=== PATIENT | female | born 1940 | race Caucasian/White ===

== ENCOUNTER → 2016-10-09 | Outpatient (CLI) | payer OTHER, MEDICARE | LOC: BHFA 13:15 | PROVIDERS: ATTEND Internal Medicine Cardiovascular Disease | DX: I25.10 Atherosclerotic heart disease of native coronary artery without angina pectoris (principal); I50.9 Heart failure, unspecified ==

== ENCOUNTER → 2017-04-08 | Outpatient (CLI) | payer OTHER, MEDICARE | LOC: BMCIMAGING 10:23 | PROVIDERS: ATTEND Internal Medicine | DX: Z13.820 Encounter for screening for osteoporosis (principal); M81.0 Age-related osteoporosis without current pathological fracture ==

== ENCOUNTER 2017-07-27 05:38 | Inpatient (IN) | payer OTHER, MEDICARE ==
--- NOTE | 2017-07-27 05:13 | GHP ---
[f rep st] HISTORY AND PHYSICAL Amended report CURRENT COMPLAINT: Left knee pain. HISTORY OF PRESENT ILLNESS: The patient is a 76-year-old female with a long history of left knee pain, worsening with use and with time. She has bone-on- bone arthritic changes by radiology report. She is undergoing a left total knee arthroplasty. ALLERGIES: Include sulfa. CURRENT MEDICATIONS: Include atorvastatin, carvedilol, ketorolac eye drops, levothyroxine, and prednisone eye drops. 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 PAST SURGICAL HISTORY: Prior surgeries include a cyst removal, lumpectomy, tonsillectomy, stent placement, and oncology surgery. SOCIAL HISTORY: She is a former smoker, and uses no alcohol. PHYSICAL EXAMINATION: HEENT: The patient's pupils are equal, round, and reactive to light. CHEST: Clear to auscultation. HEART: Regular rate and rhythm. ABDOMEN: Soft and nontender. EXTREMITIES: Left knee has a slight varus bow with medial osteophytic spurring. ASSESSMENT AND PLAN: Patient is status post left knee osteoarthritis. Plan is to take her to the operating room to undergo a left total knee arthroplasty. /[id number]/MODL Add acc#, 07/27/17, marcell STEVENS
[2017-07-27] MEDS ORDERED: ACETAMINOPHEN 500 MG TAB PO ONE (06:00)
[2017-07-27] MEDS ORDERED: ceFAZolin 2 GM/SWFI 2 GM/20 ML SYR IVP ONE (06:00)
[2017-07-27] MEDS ORDERED: ROPIVACAINE 0.2% 80 MG, EPINEPHrine 0.2 MG, KETOROLAC TROMETHAMINE 30 MG, morphINE 10 M... IU ONE (06:00)
[2017-07-27] MEDS ORDERED: TRANEXAMIC ACID 3,000 MG in NS 50 ML IRR ONE (06:00)
--- NOTE | 2017-07-27 06:59 | PDANEPAE ---
ANE History of Present Illness h/o OA presents for TKA ANE Past Medical History - Cardiovascular History Hx Hypertension: No Hx Arrhythmias: No Hx Chest Pain: No Hx Coronary Artery / Peripheral Vascular Disease: Yes Hx CHF / Valvular Disease: No Hx Palpitations: No Cardiovascular History Comment: STEMI 07-24-16 w/ coronary stent. On Plavix - Pulmonary History Hx COPD: No Hx Asthma/Reactive Airway Disease: No Hx Recent Upper Respiratory Infection: No Hx Oxygen in Use at Home: No Hx Sleep Apnea: No Pulmonary History Comment: asthma while living in [place]. in [place] since '. - Neurologic History Hx Cerebrovascular Accident: No Hx Seizures: No Hx Dementia: No - Endocrine History Hx Diabetes: Yes Hypothyroid: No Hyperthyroid: No Obesity: no Endocrine History Comment: well controlled w/diet. Hypthyroid. - Renal History Hx Renal Disorders: No - Liver History Hx Hepatic Disorders: No - Cancer History Hx Cancer: Yes Cancer History Comment: DCIS L breast - Congenital Disorder History Hx Congenital Disorders: No - GI History GERD: no Hx Gastrointestinal Disorders: Yes Gastrointestinal History Comment: occ Pepcid for heartburn w/Rx at night - Other Health History Other Health History: OA L knee. plan for L eye cataract:06-29-17. - Chronic Pain History Chronic Pain: Yes (L knee) - Surgical History Prior Surgeries: R eye cataract 05-20-17. lumpectomy L breast . tonsillectomy. cyst excision mouth . coronary stent 07-15 ANE Review of Systems Review of systems is: negative Review of Systems: - Exercise capacity METS (RN): 4 METS ANE Patient History - Allergies Allergies/Adverse Reactions: Sulfa (Sulfonamide Antibiotics) Allergy (Verified 06/28/17 17:43) Unknown - Home Medications Home medications: home medication list seen and reviewed Home Medications: Cholecalciferol Vit D3 [Vitamin D3 (*)] 2,000 unit PO DAILY 12/03/14 [Last Taken 1 Week Ago ~07/20/17] Aspirin [Aspirin 81mg (*)] 81 mg PO DAILY 06/28/17 [Last Taken 1 Week Ago ~07/20] Atorvastatin Calcium [Lipitor 80 mg] 80 mg PO DAILY 06/28/17 [Last Taken ] Calcium Carbonate [Oyster Shell Calcium 500 mg (*)] 500 mg PO DAILY 06/28/17 [ Last Taken 1 Week Ago ~07/20/17] Carvedilol [Coreg (*)] 1.5625 mg PO BIDMEAL 06/28/17 [Last Taken 07/27/17] Herbals/Supplements -Info Only 1 ea PO DAILY 06/28/17 [Last Taken 1 Week Ago ~] Ketorolac 0.5% [Acular 0.5% Opht Drops (*)] 1 drops LEFTEYE BID 06/28/17 [Last Taken 07/27/17] [place]-3 Fatty Acids [Fish Oil 1000 mg (*)] 1,000 mg PO DAILY 06/28/17 [Last Taken 1 Week Ago ~07/20/17] Polyvinyl Alcohol/Povidone/Pf [Refresh Classic Eye Drops] 1 each OP DAILY [Last Taken Unknown] prednisoLONE ACET 1% [Pred Forte 1% (*)] 1 drops LEFTEYE BID 06/28/17 [Last Taken 07/27/17] - Anes Hx Anes Hx: no prior problems - Smoking Hx Smoking Status: Former smoker ANE Labs/Vital Signs - Vital Signs Height: 156.21 cm Weight: 53.297 kg ANE Physical Exam - Airway Neck exam: FROM Mallampati Score: Class 2 Mouth exam: normal dental/mouth exam - Pulmonary Pulmonary: no respiratory distress - Cardiovascular Cardiovascular: regular rate and rhythym - ASA Status ASA Status: III ANE Anesthesia Plan Anesthesia Plan: spinal Regional Anesthesia: single shot NB, adductor canal FNB
--- NOTE | 2017-07-27 07:11 | PDHPUP ---
History & Physical Update H&P update statement: This history and physical update is based on an assessment of the patient which was completed after admission or registration (within 24 hours), but prior to the surgery/procedure. H&P update: H&P reviewed & patient examined, no change in patient's condition since H&P completed
[2017-07-27] MEDS ORDERED: LR 1,000 ML IV ONE (07:56)
[2017-07-27] MEDS ORDERED: CALCIUM CHLORIDE 1 GM/10 ML INJ ONE ×2 (08:32→13:12)
[2017-07-27] MEDS ORDERED: THROMBIN (BOVINE) 5,000 UNIT VIAL TP ONE ×2 (08:32→13:12)
[2017-07-27] MEDS ORDERED: BUPIVACAINE/EPI 0.5% 30 ML SDV ONE ×2 (08:32→13:02)
[2017-07-27] MEDS ORDERED: BACITRACIN 50,000 UNITS/10 ML SYR IRR ONE (08:33)
[2017-07-27] MEDS ORDERED: POLYMYXIN B SULFATE 500,000 UNIT/10 ML SYR IRR ONE (08:33)
[2017-07-27] MEDS ORDERED: ACETAMINOPHEN 500 MG TAB ONE (10:51)
[2017-07-27] MEDS ORDERED: ceFAZolin 2 GM/SWFI 20 ML SYR IVP ONE (10:52)
[2017-07-27] MEDS ORDERED: PROPOFOL/EMULSION 500 MG/50 ML BOTTLE IV ONE (11:26)
[2017-07-27] MEDS ORDERED: epHEDrine SULFATE 10 MG/ML SYR ONE ×3 (12:20)
[2017-07-27] MEDS ORDERED: ROPIVACAINE HCL 150 MG/30 ML INJ ONE (12:38)
[2017-07-27] MEDS ORDERED: LIDOCAINE 2% 100 MG/5 ML SYR ONE (12:38)
[2017-07-27] MEDS ORDERED: TRANEXAMIC ACID 3,000 MG/50 ML BAG IRR ONE (13:00)
[2017-07-27] MEDS ORDERED: LR 500 ML IV PRN (13:17)
[2017-07-27] MEDS ORDERED: OXYCODONE/APAP 5/325 TAB PO PRN (13:17)
[2017-07-27] MEDS ORDERED: NALOXONE HCL 0.4 MG/ML INJ IVP PRN (13:17)
[2017-07-27] MEDS ORDERED: HYDROmorphONE/DILAUDID 1 MG/ML INJ IVP PRN (13:17)
[2017-07-27] MEDS ORDERED: HYDROCODONE/APAP 5/325 TAB PO PRN (13:17)
[2017-07-27] MEDS ORDERED: ALBUTEROL 3 ML DEYVIAL IH PRN (13:17)
[2017-07-27] MEDS ORDERED: ONDANSETRON 4 MG/2 ML VIAL IVP PRN ×2 (13:17→13:51)
[2017-07-27] MEDS ORDERED: fentaNYL 100 MCG/2 ML INJ IVP PRN (13:17)
[2017-07-27] MEDS ORDERED: ACETAMINOPHEN 500 MG TAB PO PRN (13:17)
[2017-07-27] MEDS ORDERED: TEMAZEPAM 15 MG CAP PO PRN (13:51)
[2017-07-27] MEDS ORDERED: CYCLOBENZAPRINE 10 MG TAB PO PRN (13:51)
[2017-07-27] MEDS ORDERED: DIPHENOXYLATE/ATROPINE LOMOTIL 1 TAB PO PRN (13:51)
[2017-07-27] MEDS ORDERED: LACTULOSE 20 GM/30 ML UDCUP PO PRN (13:51)
[2017-07-27] MEDS ORDERED: TAPENTADOL HCL 50 MG TAB PO PRN (13:51)
[2017-07-27] MEDS ORDERED: ONDANSETRON DISINTEGRATING 4 MG TAB PO PRN (13:51)
[2017-07-27] MEDS ORDERED: METOCLOPRAMIDE 10 MG/2 ML VIAL IVP PRN (13:51)
[2017-07-27] MEDS ORDERED: POLYETHYLENE GLYCOL 3350 17 GM PKT PO PRN (13:51)
[2017-07-27] MEDS ORDERED: diphenhydrAMINE 25 MG CAP PO PRN (13:51)
[2017-07-27] MEDS ORDERED: MAGNESIUM HYDROXIDE 30 ML UDCUP PO PRN (13:51)
[2017-07-27] MEDS ORDERED: PROMETHAZINE HCL 25 MG/ML INJ IVP PRN (13:51)
[2017-07-27] MEDS ORDERED: BISACODYL 10 MG SUPP PR PRN (13:51)
[2017-07-27] MEDS ORDERED: PROMETHAZINE HCL 25 MG SUPPR PR PRN (13:51)
--- NOTE | 2017-07-27 13:51 | POSTOPPROG ---
Post Op Note Date of Operation: 07/27/17 Surgeon: Liv Wang Knowledge Manager: coltrain Anesthesia: Epidural, Other (Specify) Pre-op Diagnosis: l knee oa Procedure: l tkr Inf/Abcess present in the surg proc area at time of surgery?: No Depth: Deep Incisional (Fascial) EBL: 100-500
[2017-07-27] MEDS ORDERED: LR 1,000 ML IV SCH (14:00)
--- NOTE | 2017-07-27 15:05 | GOP ---
[f rep st] OPERATIVE REPORT DATE OF OPERATION: 07/27/2017 SURGEON: Liv Wang MD ENGINE CLEANER: John Roche, CSFA, LSA, whose presence was medically necessary. ANESTHESIA: By epidural nerve block plus adductor nerve block per surgeon's request. PREOPERATIVE DIAGNOSIS: Left knee osteoarthritis. POSTOPERATIVE DIAGNOSIS: Left knee osteoarthritis. PROCEDURE PERFORMED: Left total knee arthroplasty. FINDINGS: INDICATIONS: This is a 76-year-old female with a several year history of left knee pain worsening wi th use and with time, along with an increasing varus deformity with instability with time. X-ray exa m reveals severe osteoarthritic changes within the knee. She wishes to have surgery in order to reso lve the problem. DESCRIPTION OF PROCEDURE: The patient brought to the operating room after the left side had been damaso ntified as correct side by the patient, nurse and physician. Once in the operating room, she was giv en an adductor canal block. She was also given an epidural nerve block and then placed supine on the operative table. A tourniquet was placed on the left lower extremity. Now, with the left lower ext remity then sterilely prepped and draped in usual fashion using GSI solution, the limb was exsanguina susan, tourniquet inflated to 250 mmHg. A linear incision was made on the anterior portion of the knee 1 handbreadth above and below the patella with sharp dissection carried down through the skin and lacey bcutaneous layers with bleeding controlled using electrocautery. A medial parapatellar approach was performed through the extensor mechanism with the patella brought to the side but not everted. She w as noted to have severe osteoarthritic changes to the medial compartment and lesser changes, but down to bone, into the lateral and patellofemoral compartments. She had abundant amount of osteophytic s purring. The ACL as well as medial lateral meniscus and the Hoffa fat pad were removed in order to h ave clear access to the rest of the knee. The first femoral jig was put into place with drill holes made for the jig and drill holes placed within the distal portion of the femur. The first jig was re moved and the #2 jig was put into place with the end cutting block, then pinned into place jeevan colmenares. The jig portion was removed and an oscillating saw was used to remove the distal end of the fem ur. Once the distal end of the femur was removed, the prior holes that had been made in the distal e nd of the femur were then filled with pins again and the 3 in 1 cutting block was put into place, set in 0 degrees of extra external rotation. Lug holes were drilled for the femoral component and the a nterior, posterior and anterior chamfer cuts were made. This too was then removed and the posterior cutting jig was then put into place and the posterior chamfer cuts were made. Trial femoral componen t was then put into place, noted to fit securely. The knee was able to achieve full extension sugges ting adequate amount of bone had been removed. The trial was then removed. The knee was brought to maximum flexion, tibia subluxed anteriorly and a tibial guide was then put into place. Residual cart ilage was removed from the lateral compartment in order to ensure that the feet of the tibial jig fit appropriately. Once set into place, it was noted to have good alignment, varus valgus and posterior slope. It was then pinned into place. An oscillating saw was used to remove the proximal portion o f the tibia. Once the this portion of the bone had been removed, femoral and tibial trials were then put into place. The knee was able to achieve full extension suggesting adequate amount of bone rese ction. The knee was brought through range of motion, in order to secure the rotation of the tibial c omponent. This was marked while the leg was in extension. The trials were then removed, the knee br ought to full flexion with the tibia subluxed anteriorly. The tibial template was then put into plac e, pinned into place. Medullary drill and a keel punch were passed through the trial. Once complete d, the trial was removed. The knee was brought into full extension. Patella was then everted, held in place with 2 towel clamps, was measured to be 20 mm in thickness. Oscillating saw was used to rem ove the posterior portion of the patella, leaving 15 mm of bone. Multiple trials were tried on the c ut surface of the bone, noted that a 29 mm patellar button seemed to fit best and lug holes were dril led for that patellar button. All cut surfaces of bone were then thoroughly irrigated with antibioti c solution while cement was being mixed. Prior to the cement being placed in the knee, a joint cockt ail was injected into the posterior capsule along the periosteum of the femur and tibia and even into the extensor mechanism. Once the cement had become doughy, it was placed on the proximal end of the tibia with a custom made [employer]form[employer] tibial component put into place, with excess cement removed usin g Dyess elevators. Cement was then placed on the posterior skids of the femoral component and cement placed on the distal and anterior portions of the cut surface of the femur. A custom-made cruciate r etaining left femoral component from [employer] was put into place, with excess cement removed using Dyess elevator, trial liners were placed in the tibial tray and the knee brought to full extension un faustina pressurized cement. Cement was then placed on the cut surface of the patella and a 29 mm patellar button was clamped into place and excess cement removed using Dyess elevator. Once the cement had h ardened, the clamps were removed as well as the trials, any excess cement that was found was removed using combination of osteotome and rongeur. Multiple trials were placed in the tibial tray, noted th at a 6 mm medial and a size B lateral insert seemed to fit best. Therefore, the trials were removed. The tibial tray was thoroughly irrigated with antibiotic solution and a 6 mm medial and a size B la teral polyethylene insert were placed in the tibial tray. Once locked into place, the knee was broug ht to 30 degrees of flexion. Tourniquet was deflated at 50 minutes. Bleeding was controlled using e lectrocautery. Then, 0 Vicryl suture was used in a [id number]-[id number] type stitch to close the extensor mechanism with plasma gel placed intra-articularly. Then, 0 Vicryl and 2-0 Vicryl suture were used t o close subcutaneous layers with plasma gel placed external to the extensor mechanism and then a 3-0 V-Loc suture was used in a running subcuticular stitch to close the skin. The wound was dressed with Steri-Strips, Xeroform, 4 x 4, Kerlix. The leg was completely undraped in the operating room, tourn iquet removed from the thigh and an Michael wrap placed around the knee. The patient was then woken up, transferred onto a stretcher, and sent to recovery room in good condition. TOURNIQUET TIME: 50 minutes. /[id number]/MODL
--- NOTE | 2017-07-27 15:35 | POSTANESTH ---
Post Anesthetic Evaluation Cardiovascular Status: Normal, Stable Respiratory Status: Normal, Stable Level of Consciousness/Mental Status: Can Participate in Eval Pain Control: Adequate, Prn Tx Ordered Nausea/Vomiting Control: Adequate, Prn Tx Ordered Complications Possibly Related to Anesthesia: None Noted
[2017-07-27] MEDS: KETOROLAC 30 MG/1 ML SDV IVP SCH (17:51)
[2017-07-27] MEDS: ACETAMINOPHEN 325 MG TAB PO SCH (17:55)
[2017-07-27] MEDS: traMADol 50 MG TAB PO SCH (17:56)
[2017-07-27] MEDS: CARVEDILOL 3.125 MG TAB PO SCH (17:56)
[2017-07-27] MEDS: FAMOTIDINE 20 MG TAB PO SCH ×2 (18:00→18:01)
[2017-07-27] MEDS: ceFAZolin 2 GM/DEXTROSE 100 ML IV SCH (19:55)
[2017-07-27] MEDS: oxyCODONE IR 5 MG TAB PO PRN (19:59)
[2017-07-27] MEDS: SENNOSIDES/DOCUSATE SODIUM TAB PO SCH (20:00)
[2017-07-28] MEDS: ACETAMINOPHEN 325 MG TAB PO SCH ×5 (00:11→23:59)
[2017-07-28] MEDS: traMADol 50 MG TAB PO SCH ×5 (00:11→22:41)
[2017-07-28] MEDS: KETOROLAC 30 MG/1 ML SDV IVP SCH ×5 (00:11→23:59)
[2017-07-28] MEDS: ceFAZolin 2 GM/DEXTROSE 100 ML IV SCH (04:15)
[2017-07-28] MEDS: LEVOTHYROXINE 75 MCG TAB PO SCH (05:33)
[2017-07-28 05:51] LABS: HEMATOCRIT 33.9 % (38.0-47.0); HEMOGLOBIN 11.4 g/dL (12.6-16.3)
[2017-07-28] MEDS: FAMOTIDINE 20 MG TAB PO SCH ×2 (08:11→21:58)
[2017-07-28] MEDS: SENNOSIDES/DOCUSATE SODIUM TAB PO SCH ×2 (08:14→21:58)
[2017-07-28] MEDS: RIVAROXABAN 10 MG TAB PO SCH (08:14)
[2017-07-28] MEDS: CARVEDILOL 3.125 MG TAB PO SCH ×2 (08:21→18:15)
[2017-07-28] MEDS ORDERED: ATORVASTATIN CALCIUM 40 MG TAB PO SCH (09:00)
--- NOTE | 2017-07-28 12:37 | SOAPPROG ---
SOAP Progress Note Assessment/Plan: Assessment: Plan: - stay tonight, d/c home tomorrow 07/28/17 12:36 Subjective: Had some nausea this am, better now, pain is minimal Objective: Vital Signs Temp Pulse Resp BP Pulse Ox 36.3 C 51 L 16 107/59 L 93 07/28/17 11:45 07/28/17 11:45 07/28/17 11:45 07/28/17 11:45 07/28/17 11:45 Laboratory Results 07/28/17 05:13 07/27/17 07/28/17 07/29/17 05:59 05:59 05:59 Intake Total 2585 Output Total 1200 Balance 1385 Dressing cdi, calf nt, neg homman's, nvi - Time Spent With Patient Time Spent With Patient: 15 - Pending Discharge Pending Discharge Within 24 Hours: No Pending Discharge Within 48 Hours: Yes Pending Discharge Date: 07/30/17 Pending Discharge Time: 11:00 ICD10 Worksheet Patient Problems: Problems Problem Status Onset Acute [place], anterior wall Acute Chronic Disease Mgm/Transitional Care Acute
--- NOTE | 2017-07-28 14:30 | ASMTCMCOM ---
CM Note CM Note Notes: CJR pre-call pt agreeable to [facility] per surgeon's recommendation. PT rec HH vs. outpatient, pt agreeable still to [facility] PT. Referral sent in Allscripts. Pt likely d/c tomorrow. CM to follow. Date Signed: 07/28/2017 02:29 PM Electronically Signed By:EULALIA Lopez
[2017-07-28] MEDS ORDERED: ATORVASTATIN CALCIUM 20 MG TAB PO SCH (18:00)
[2017-07-29 05:13] LABS: HEMATOCRIT 35.1 % (38.0-47.0); HEMOGLOBIN 11.9 g/dL (12.6-16.3)
[2017-07-29] MEDS: LEVOTHYROXINE 75 MCG TAB PO SCH (05:45)
[2017-07-29] MEDS: traMADol 50 MG TAB PO SCH ×2 (05:45→13:18)
[2017-07-29] MEDS: ACETAMINOPHEN 325 MG TAB PO SCH ×2 (05:46→13:18)
[2017-07-29] MEDS: KETOROLAC 30 MG/1 ML SDV IVP SCH ×2 (05:46→13:18)
[2017-07-29 07:52] VITALS: BP 102/52; PULSE 66; RESP 16; TEMP 97.8; O2SAT 94
[2017-07-29] MEDS: SENNOSIDES/DOCUSATE SODIUM TAB PO SCH (09:48)
[2017-07-29] MEDS: RIVAROXABAN 10 MG TAB PO SCH (09:48)
[2017-07-29] MEDS: CARVEDILOL 3.125 MG TAB PO SCH (09:50)
[2017-07-29] MEDS: FAMOTIDINE 20 MG TAB PO SCH ×2 (09:51→12:15)
--- NOTE | 2017-07-29 12:21 | SOAPPROG ---
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 07/28/17 12:36 07/29/17 12:20 Subjective: Doing well Objective: Vital Signs Temp Pulse Resp BP Pulse Ox 36.6 C 66 16 102/52 L 94 07/29/17 07:49 07/29/17 07:49 07/29/17 07:49 07/29/17 07:49 07/29/17 07:49 Laboratory Results 07/29/17 05:04 07/28/17 07/29/17 07/30/17 05:59 05:59 05:59 Intake Total 2585 2100 240 Output Total 1200 1825 500 Balance 1385 275 -260 Wound CDI, calf NT, weakness with dorsiflexion on surgical side - Time Spent With Patient Time Spent With Patient: 15 - Pending Discharge Pending Discharge Within 24 Hours: Yes Pending Discharge Within 48 Hours: No Pending Discharge Date: 07/30/17 Pending Discharge Time: 11:00 ICD10 Worksheet Patient Problems: Problems Problem Status Onset Acute PA, anterior wall Acute Chronic Disease Mgm/Transitional Care Acute
--- NOTE | 2017-07-29 12:24 | PDIAF ---
- Diagnosis Code Status: Full Code - Medication Management Discharge Medications: Medications to Continue on Transfer Cholecalciferol Vit D3 [Vitamin D3 (*)] 2,000 unit PO DAILY 12/03/14 [Last Taken 1 Week Ago ~07/20/17] Clopidogrel Bisulfate [Plavix (*)] 75 mg PO DAILY #30 tab 07/30/16 [Last Taken 07/19/17] Levothyroxine [Synthroid 75 mcg (*)] 75 mcg PO DAILY06 #30 tab 07/30/16 [Last Taken 07/27/17] Aspirin [Aspirin 81mg (*)] 81 mg PO DAILY 06/28/17 [Last Taken 1 Week Ago ~07/20] Calcium Carbonate [Oyster Shell Calcium 500 mg (*)] 500 mg PO DAILY 06/28/17 [ Last Taken 1 Week Ago ~07/20/17] Carvedilol [Coreg (*)] 1.5625 mg PO BIDMEAL 06/28/17 [Last Taken 07/27/17] Herbals/Supplements -Info Only 1 ea PO DAILY 06/28/17 [Last Taken 1 Week Ago ~] Ketorolac 0.5% [Acular 0.5% Opht Drops (*)] 1 drops LEFTEYE BID 06/28/17 [Last Taken 07/27/17] [place]-3 Fatty Acids [Fish Oil 1000 mg (*)] 1,000 mg PO DAILY 06/28/17 [Last Taken 1 Week Ago ~07/20/17] Polyvinyl Alcohol/Povidone/Pf [Refresh Classic Eye Drops] 1 each OP DAILY [Last Taken Unknown] prednisoLONE ACET 1% [Pred Forte 1% (*)] 1 drops LEFTEYE BID 06/28/17 [Last Taken 07/27/17] Atorvastatin Calcium [Lipitor 20 mg (*)] 20 mg PO DAILY18 07/28/17 [Last Taken Unknown] Acetaminophen [Tylenol 325mg (*)] 650 mg PO Q6HRS tab 07/29/17 [Last Taken Unknown] Ondansetron Odt [Zofran Odt 4 mg (*)] 4 mg PO Q4HRS PRN tab 07/29/17 [Last Taken Unknown] Rivaroxaban [Xarelto 10mg (*)] 10 mg PO DAILY tab 07/29/17 [Last Taken Unknown] oxyCODONE IR [Oxycodone Ir (*)] 5 - 10 mg PO Q3HRS PRN tab 07/29/17 [Last Taken Unknown] traMADol [Ultram 50 mg (*)] 50 mg PO Q6HRS tab 07/29/17 [Last Taken Unknown] Discharge Medications: Refer to the Discharge Home Medication list for PRN reason. - Orders Services needed: Physical Therapy Diet Recommendation: no restrictions on diet Diet Texture: Regular Texture Diet Cooper: Not applicable Wound Care Instructions: keep dressin on, will remove in office Activity/Weight Bearing Restrictions: wbat - Follow Up Care Current Providers and Referrals: Martha Moss MD [Primary Care Provider] - Liv Wang MD [Medical Doctor] -
--- NOTE | 2017-07-29 13:36 | ASMTCMCOM ---
CM Note CM Note Notes: Pt medically stable for d/c with [facility] PT. Orders sent in Allscripts. Date Signed: 07/29/2017 01:35 PM Electronically Signed By:EULALIA Lopez
[2017-07-29] MEDS: oxyCODONE IR 5 MG TAB PO PRN (13:49)
--- NOTE | 2017-07-29 15:00 | ASDISCHSUM ---
Discharge Information Plan Status:Home with Home Health Medically Cleared to Leave: Discharge Date:07/29/2017 02:34 PM CM D/C Disposition:Home Health Service ADT D/C Disposition:Home, Routine, Self-Care Projected Discharge Date:07/29/2017 11:00 AM Transportation at D/C: Discharge Delay Reason: Follow-Up Date:07/29/2017 11:00 AM Discharge Slot: Final Diagnosis: Placement Information Referral Type:*Home Health Care Services Referral ID:[id number] Provider Name:[facility] [place] Address 1:[address] [address] Phone Number: Address 2: Fax Number: City:[place] Selection Factors: State:[place] Patient Contact Information Contact Name:BECKY Relationship:Daughter Address: Work Phone: City: [facility] Phone: [facility] Code: Email: Financial Information Financial Class: Primary Plan Desc:MEDICARE INPATIENT Primary Plan Number:[id number] Secondary Plan Desc:[employer]/MDR SUPPLEMENT Secondary Plan Number:[id number] Assessment Information [facility] CM Progress Note CM Note CM Note Notes: CJR pre-call pt agreeable to [facility] per surgeon's recommendation. PT rec [facility] vs. outpatient, pt agreeable still to [facility] PT. Referral sent in Allscripts. Pt likely d/c tomorrow. CM to follow. Date Signed: 07/28/2017 02:29 PM Electronically Signed By:EULALIA Lopez [facility] CM Progress Note CM Note CM Note Notes: Pt medically stable for d/c with [facility] PT. Orders sent in Allscripts. Date Signed: 07/29/2017 01:35 PM Electronically Signed By:EULALIA Lopez Intervention Information
== END 2017-07-29 14:34 | disposition home health service (06) | DRG 470 ==
LOC: F3N 05:38
PROVIDERS: ADMIT Orthopaedic Surgery; ATTEND Orthopaedic Surgery
PROC: 0SRD0J9 Replacement of Left Knee Joint with Synthetic Substitute, Cemented, Open Approach (ICD-10-PCS; principal; 2017-07-27 07:15)
DX: M17.12 Unilateral primary osteoarthritis, left knee (principal); I25.2 Old myocardial infarction; E11.9 Type 2 diabetes mellitus without complications; E03.9 Hypothyroidism, unspecified; Z79.02 Long term (current) use of antithrombotics/antiplatelets; Z95.5 Presence of coronary angioplasty implant and graft
CPT/HCPCS: 97161-GP; 97165-GO; 97535-GO; C1713; G8978-GP-CI; G8979-GP-CI; G8987-GO-CJ; G8988-GO-CI; J0171; J0690; J1885; J2001; J2405; J2704; J2795

== ENCOUNTER 2017-11-02 22:08 | Emergency (ER) | payer OTHER, MEDICARE ==
--- NOTE | 2017-11-02 22:33 | EDPHY ---
H & P Stated Complaint: mechanical fall, L wrist/shoulder pain Time Seen by Provider: 11/02/17 22:32 HPI/ROS: HPI CHIEF COMPLAINT: Mechanical trip and fall, left shoulder, left wrist pain HISTORY OF PRESENT ILLNESS: Patient very pleasant 76-year-old female she took a mechanical trip and fall while getting out of her car. She slipped and fell. Outstretched left hand. She landed on her left hand and left shoulder. She complains of pain in the left wrist radial aspect 3/10. Also 1/10 left shoulder pain. She has full range of motion of the left wrist, left shoulder. Denies head strike. She is not on any anticoagulation. She denies pain anywhere else. Denies head strike or neck pain denies chest pain or shortness of breath. Denies syncope. Past Medical History: Cardiac disease Past Surgical History: Knee replacement Social History: Denies drugs alcohol tobacco products. Family History: Noncontributory ROS REVIEW OF SYSTEMS: A comprehensive 10 point review of systems is otherwise negative aside from elements mentioned in the history of present illness. Exam Constitutional appears well nontoxic no acute distress triage nursing summary reviewed, vital signs reviewed, awake/alert. Eyes normal conjunctivae and sclera, EOMI, PERRLA. HENT normal inspection, atraumatic, moist mucus membranes, no epistaxis, neck supple/ no meningismus, no raccoon eyes. Respiratory clear to auscultation bilaterally, normal breath sounds, no respiratory distress, no wheezing. Cardiovascular rate normal, regular rhythm, no murmur, no edema, distal pulses normal. Gastrointestinal soft, non-tender, no rebound, no guarding, normal bowel sounds, no distension, no pulsatile mass. Genitourinary no CVA tenderness. Musculoskeletal left upper extremity: X-ray nerve intact, full range of motion of the left shoulder, full range motion of left wrist, good radial pulse. No signs of compartment syndrome, good cap refill, good solar sales strength. Tender palpation of the distal radius. No obvious signs of trauma. Very mild swelling. no midline vertebral tenderness, full range of motion, no calf swelling, no tenderness of extremities, no meningismus, good pulses, neurovascularly intact. Right ankle: Tender palpation over the right lateral malleolus and swelling however patient has declined x-ray. Most likely ankle sprain. Skin pink, warm, & dry, no rash, skin atraumatic. Neurologic awake, alert and oriented x 3, AAOx3, moves all 4 extremities equally, motor intact, sensory intact, CN II-XII intact, normal cerebellar, normal vision, normal speech. Psychiatric normal mood/affect. Heme/Lymph/Immune no lymphadenopathy. Differential Diagnosis: Includes but is not limited to in a particular order left wrist sprain, left wrist fracture, soft tissue injury, bony contusion, shoulder contusion Medical Decision Making: Plan for this patient she declined pain medicine here in emergency room, x-ray left shoulder, x-ray left wrist. Will most likely splint the left wrist that she has some discomfort there. Re-evaluation: X-ray of the left shoulder is negative for acute fracture dislocation or dislocation. X-ray of the left wrist: This shows a impacted, comminuted, left distal radius wrist fracture. This patient be splinted in a sugar-tong splint. She has no scaphoid tenderness on exam. She will need to follow up with Orthopedics. I reviewed with the patient that her x-ray left shoulder is negative for fracture or dislocation. I reviewed that her wrist is fractured is a closed injury. She be placed in a splint. She will need to follow up with Orthopedics. She understands call their make a follow-up appointment. Additionally will give her prescription for [place] for pain control. Declined pain medicine here in the emergency room she is neurovascular intact no signs of compartment syndrome. Additionally as for her right ankle she declined any imaging. She states feels fine she has some swelling over the right lateral malleolus. Some ecchymosis. Source: Patient - Personal History Current Tetanus/Diphtheria Vaccine: Yes - Medical/Surgical History Hx Asthma: Yes Hx Chronic Respiratory Disease: No Hx Diabetes: Yes Hx Cardiac Disease: Yes Hx Renal Disease: No Hx Cirrhosis: No Hx Alcoholism: No Hx HIV/AIDS: No Hx Splenectomy or Spleen Trauma: No Other PMH: cheek cyst removal, tonsillectomy, left lumpectomy,asthma, diet controlled DM type 2, rheumatic fever age 5,[place] 07/19/2016,asthma - Social History Smoking Status: Former smoker Constitutional: Initial Vital Signs Temperature (C) 36.3 C 11/02/17 22:10 Heart Rate 89 11/02/17 22:10 Respiratory Rate 18 11/02/17 22:10 Blood Pressure 136/71 H 11/02/17 22:10 O2 Sat (%) 93 11/02/17 22:10 O2 Delivery Mode Room Air Allergies/Adverse Reactions: Sulfa (Sulfonamide Antibiotics) Allergy (Verified 11/02/17 22:10) Unknown Home Medications: Medication Instructions Recorded Cholecalciferol Vit D3 [Vitamin D3 2,000 unit PO DAILY 12/03/14 (*)] Clopidogrel Bisulfate [Plavix (*)] 75 mg PO DAILY #30 tab 07/30/16 Levothyroxine [Synthroid 75 mcg 75 mcg PO DAILY06 #30 tab 07/30/16 (*)] Aspirin [Aspirin 81mg (*)] 81 mg PO DAILY 06/28/17 Calcium Carbonate [Oyster Shell 500 mg PO DAILY 06/28/17 Calcium 500 mg (*)] Carvedilol [Coreg (*)] 1.5625 mg PO BIDMEAL 06/28/17 Herbals/Supplements -Info Only 1 ea PO DAILY 06/28/17 Ketorolac 0.5% [Acular 0.5% Opht 1 drops LEFTEYE BID 06/28/17 Drops (*)] [place]-3 Fatty Acids [Fish Oil 1000 1,000 mg PO DAILY 06/28/17 mg (*)] Polyvinyl Alcohol/Povidone/Pf 1 each OP DAILY 06/28/17 [Refresh Classic Eye Drops] prednisoLONE ACET 1% [Pred Forte 1 drops LEFTEYE BID 06/28/17 1% (*)] Atorvastatin Calcium [Lipitor 20 20 mg PO DAILY18 07/28/17 mg (*)] Acetaminophen [Tylenol 325mg (*)] 650 mg PO Q6HRS tab 07/29/17 Ondansetron Odt [Zofran Odt 4 mg 4 mg PO Q4HRS PRN tab 07/29/17 (*)] Rivaroxaban [Xarelto 10mg (*)] 10 mg PO DAILY tab 07/29/17 oxyCODONE IR [Oxycodone Ir (*)] 5 - 10 mg PO Q3HRS PRN tab 07/29/17 traMADol [Ultram 50 mg (*)] 50 mg PO Q6HRS tab 07/29/17 Hydrocodone/APAP 5/325 [[place] 1 - 2 tab PO Q4H PRN #10 tab 11/02/17 5/325] Medical Decision Making - Diagnostics Imaging Results: Imaging Impressions Wrist X-Ray 11/02/17 22:22 Impression: Mildly comminuted, displaced and impacted intra-articular fracture of the distal left radius. Shoulder X-Ray 11/02/17 22:36 Impression: Negative for fracture. - Data Points Medications Given: Discontinued Medications Hydrocodone Bitart/Acetaminophen ([place] 5/325mg Prepack#6) 1 btl TAKEHOME EDNOW ONE Stop: 11/02/17 23:37 Last Admin: 11/02/17 23:53 Dose: 1 btl Departure - Departure Disposition: Home, Routine, Self-Care Clinical Impression: Wrist fracture Qualifiers: Encounter type: initial encounter Fracture type: closed Laterality: left Qualified Code(s): S62.102A - Fracture of unspecified carpal bone, left wrist, initial encounter for closed fracture Ankle sprain Qualifiers: Encounter type: initial encounter Involved ligament of ankle: unspecified ligament Laterality: right Qualified Code(s): S93.401A - Sprain of unspecified ligament of right ankle, initial encounter Condition: Good Instructions: Hydrocodone/Acetaminophen (By mouth), Ankle Sprain (ED), Wrist Injury (ED), Wrist Fracture in Adults (ED) Additional Instructions: 1. Ice your wrist. 2. Stay in your splint for comfort. 3. Follow up with Orthopedics. Please call there this week. Referrals: Martha Moss MD [Primary Care Provider] - As per Instructions Christoph Dalton MD [Medical Doctor] - As per Instructions Prescriptions: Hydrocodone/APAP 5/325 [[place] 5/325] 1 - 2 tab PO Q4H PRN #10 tab PRN Reason: Pain, Moderate
[2017-11-02] MEDS ORDERED: HYDROCOD/APAP 5/325 PREPACK#6 BTL TAKEHOME ONE (23:36)
[2017-11-03 00:10] VITALS: BP 129/82; PULSE 77; RESP 16; TEMP 97.7; O2SAT 94
== END 2017-11-03 00:09 | disposition home or self-care (01) ==
DX: S52.572A Other intraarticular fracture of lower end of left radius, initial encounter for closed fracture (principal); S93.401A Sprain of unspecified ligament of right ankle, initial encounter; J45.909 Unspecified asthma, uncomplicated; E11.9 Type 2 diabetes mellitus without complications; Z87.891 Personal history of nicotine dependence; Z79.82 Long term (current) use of aspirin; Z79.01 Long term (current) use of anticoagulants; W01.0XXA Fall on same level from slipping, tripping and stumbling without subsequent striking against object, initial encounter
CPT/HCPCS: 73030; 73110; 99283; A4565

== ENCOUNTER → 2017-11-17 | Outpatient (CLI) | payer OTHER, MEDICARE | LOC: BHFA 13:15 | PROVIDERS: ATTEND Internal Medicine Cardiovascular Disease | DX: I25.10 Atherosclerotic heart disease of native coronary artery without angina pectoris (principal) ==

== ENCOUNTER 2018-07-13 14:35 | Inpatient (IN) | payer OTHER, MEDICARE ==
[2018-07-13] MEDS ORDERED: NS 1,000 ML IV ONE (14:47)
[2018-07-13] MEDS ORDERED: fentaNYL 100 MCG/2 ML INJ IVP ONE (14:47)
--- NOTE | 2018-07-13 14:52 | EDPHY ---
H & P Stated Complaint: fall from standing on to right side Time Seen by Provider: 07/13/18 14:48 HPI/ROS: HPI CHIEF COMPLAINT: The right hip pain, right upper leg pain. HISTORY OF PRESENT ILLNESS: This is a very pleasant 77-year-old female, presents emergency room with right hip pain. The patient was playing ping-pong ball, she went to go reach for ball slipped and fell landing on her right hip. She now complains of right lateral hip pain. She is unable to ambulate. Unable to bear weight. Unable to move the right leg. She denies any chest pain or shortness of breath. Denies any other areas of injury. Past Medical History: Significant medical history for cognitive impairment, diabetes, thyroid disease, hypotension Past Surgical History: No recent surgery Social History: Denies drugs alcohol tobacco. Family History: Noncontributory ROS REVIEW OF SYSTEMS: 10 Systems were reviewed and negative with the exception of the elements mentioned in the history of present illness. Exam Constitutional triage nursing summary reviewed, vital signs reviewed, awake/ alert. Eyes normal conjunctivae and sclera, EOMI, PERRLA. HENT normal inspection, atraumatic, moist mucus membranes, no epistaxis, neck supple/ no meningismus, no raccoon eyes. Respiratory clear to auscultation bilaterally, normal breath sounds, no respiratory distress, no wheezing. Cardiovascular rate normal, regular rhythm, no murmur, no edema, distal pulses normal. Gastrointestinal soft, non-tender, no rebound, no guarding, normal bowel sounds, no distension, no pulsatile mass. Genitourinary no CVA tenderness. Musculoskeletal right leg is neurovascular intact with good distal pulse, good cap refill. Limited range of motion due to pain of the proximal femur, right lateral hip. Patient unable to move her leg due to pain. no midline vertebral tenderness, full range of motion, no calf swelling, no tenderness of extremities, no meningismus, good pulses, neurovascularly intact. Skin pink, warm, & dry, no rash, skin atraumatic. Neurologic awake, alert and oriented x 3, AAOx3, moves all 4 extremities equally, motor intact, sensory intact, CN II-XII intact, normal cerebellar, normal vision, normal speech. Psychiatric normal mood/affect. Heme/Lymph/Immune no lymphadenopathy. Differential Diagnosis: Includes but is not limited to in a particular order hip contusion, pelvis fracture, hip fracture, femur fracture Medical Decision Making: Plan for this patient x-ray right pelvis, right hip, basic blood work, IV fentanyl for pain control re-evaluate. Re-evaluation: CT scan reviewed this shows a right-sided intratrochanteric hip fracture. X-rays were additionally reviewed. Hard to appreciate on the x-ray. Given the patient's hip fracture, patient need to be admitted to the hospitalist service. I will also consult Orthopedics. Spoke with the hospitalist service Dr. Snyder agrees to admit. Of note the patient's orthopedic surgeon is Dr. Wang, we did try to contact him but unable to contact him in the emergency room. Source: Patient, EMS - Personal History Current Tetanus Diphtheria and Acellular Pertussis (TDAP): Yes - Medical/Surgical History Hx Asthma: Yes Hx Chronic Respiratory Disease: No Hx Diabetes: Yes Hx Cardiac Disease: Yes Hx Renal Disease: No Hx Cirrhosis: No Hx Alcoholism: No Hx HIV/AIDS: No Hx Splenectomy or Spleen Trauma: No Other PMH: cheek cyst removal, tonsillectomy, left lumpectomy,asthma, diet controlled DM type 2, rheumatic fever age 5,[place] 07/19/2016,asthma - Social History Smoking Status: Former smoker Constitutional: Initial Vital Signs Temperature (C) 36 C 07/13/18 14:40 Heart Rate 75 07/13/18 14:40 Respiratory Rate 16 07/13/18 14:40 Blood Pressure 162/77 H 07/13/18 14:40 O2 Sat (%) 96 07/13/18 14:40 O2 Delivery Mode Room Air Allergies/Adverse Reactions: Sulfa (Sulfonamide Antibiotics) Allergy (Verified 07/13/18 16:27) Unknown Home Medications: Medication Instructions Recorded Cholecalciferol Vit D3 [Vitamin D3 2,000 unit PO DAILY 12/03/14 (*)] Levothyroxine [Synthroid 75 mcg 75 mcg PO DAILY06 #30 tab 07/30/16 (*)] Aspirin [Aspirin 81mg (*)] 81 mg PO HS 06/28/17 Carvedilol [Coreg (*)] 1.5625 mg PO BIDMEAL 06/28/17 Herbals/Supplements -Info Only 1 ea PO DAILY 06/28/17 [place]-3 Fatty Acids [Fish Oil 1000 1,000 mg PO DAILY 06/28/17 mg (*)] Atorvastatin Calcium [Lipitor 20 20 mg PO HS 07/28/17 mg (*)] Medical Decision Making - Diagnostics Imaging Results: Imaging Impressions Hip X-Ray 07/13/18 14:47 Impression: Acute oblique right proximal femur intertrochanteric fracture. Findings and recommendations discussed with Emergency Department physician, Davy Wood MD, at 1650 hour, 07/13/2018. Final report concurs with initial preliminary interpretation. Pelvis CT 07/13/18 15:37 Impression: 1. Acute oblique intertrochanteric right proximal femur fracture with slight displacement. 2. Constipation, diverticulosis sigmoid colon without diverticulitis. Findings and recommendations discussed with Emergency Department physician, Davy Wood MD, at 1653 hour, 07/13/2018. Final report concurs with initial preliminary interpretation. - Data Points Laboratory Results: Laboratory Results 07/13/18 15:50 07/13/18 15:50 07/13/18 07/13/18 07/13/18 15:50 15:50 15:50 WBC 8.61 10^3/uL 10^3/uL (3.80-9.50) RBC 4.41 10^6/uL 10^6/uL (4.18-5.33) Hgb 13.7 g/dL g/dL (12.6-16.3) Hct 40.9 % % (38.0-47.0) MCV 92.7 fL fL (81.5-99.8) MCH 31.1 pg pg (27.9-34.1) MCHC 33.5 g/dL g/dL (32.4-36.7) RDW 12.5 % % (11.5-15.2) Plt Count 240 10^3/uL 10^3/uL (150-400) MPV 9.5 fL fL (8.7-11.7) Neut % (Auto) 62.0 % % (39.3-74.2) Lymph % (Auto) 25.6 % % (15.0-45.0) [place] % (Auto) 6.7 % % (4.5-13.0) Eos % (Auto) 4.6 % % (0.6-7.6) Baso % (Auto) 0.8 % % (0.3-1.7) Nucleat RBC Rel Count 0.0 % % (0.0-0.2) Absolute Neuts (auto) 5.33 10^3/uL 10^3/uL (1.70-6.50) Absolute Lymphs (auto) 2.20 10^3/uL 10^3/uL (1.00-3.00) Absolute Monos (auto) 0.58 10^3/uL 10^3/uL (0.30-0.80) Absolute Eos (auto) 0.40 10^3/uL 10^3/uL (0.03-0.40) Absolute Basos (auto) 0.07 10^3/uL 10^3/uL (0.02-0.10) Absolute Nucleated RBC 0.00 10^3/uL 10^3/uL (0-0.01) Immature Gran % 0.3 % % (0.0-1.1) Immature Gran # 0.03 10^3/uL 10^3/uL (0.00-0.10) PT 13.3 SEC SEC (12.0-15.0) INR 0.99 (0.83-1.16) APTT 29.2 SEC SEC (23.0-38.0) Sodium 138 mEq/L mEq/L (135-145) Potassium 4.2 mEq/L mEq/L (3.3-5.0) Chloride 107 mEq/L mEq/L (97-110) Carbon Dioxide 23 mEq/l mEq/l (22-31) Anion Gap 8 mEq/L mEq/L (6-14) BUN 18 mg/dL mg/dL (7-23) Creatinine 0.5 mg/dL L mg/dL (0.6-1.0) Estimated GFR > 60 Glucose 132 mg/dL H mg/dL (70-100) Calcium 8.6 mg/dL mg/dL (8.5-10.4) Medications Given: Discontinued Medications Fentanyl (Sublimaze) 100 mcg IVP EDNOW ONE Stop: 07/13/18 14:48 Last Admin: 07/13/18 15:07 Dose: 100 mcg Hydromorphone HCl (Dilaudid) 0.5 mg IVP EDNOW ONE Stop: 07/13/18 15:39 Last Admin: 07/13/18 15:52 Dose: 0.5 mg Sodium Chloride (Ns) 1,000 mls @ 0 mls/hr IV EDNOW ONE; Wide Open PRN Reason: Protocol Stop: 07/13/18 14:48 Last Admin: 07/13/18 15:07 Dose: 1,000 mls Departure - Departure Disposition: [facility] Inpatient Acute Clinical Impression: Hip fracture Qualifiers: Encounter type: initial encounter Fracture type: closed Laterality: right Qualified Code(s): S72.001A - Fracture of unspecified part of neck of right femur, initial encounter for closed fracture
[2018-07-13] MEDS ORDERED: HYDROmorphONE/DILAUDID 2 MG/ML INJ IVP ONE (15:38)
[2018-07-13 16:06] LABS: PLATELET COUNT 240 10^3/uL (150-400)
[2018-07-13 16:21] LABS: INR 0.99 (0.83-1.16); PROTIME(PATIENT) 13.3 SEC (12.0-15.0)
[2018-07-13] MEDS ORDERED: ONDANSETRON 4 MG/2 ML VIAL IVP PRN (17:00)
[2018-07-13] MEDS ORDERED: ONDANSETRON DISINTEGRATING 4 MG TAB PO PRN (17:00)
--- NOTE | 2018-07-13 18:18 | HOSPPROG ---
Hospitalist Progress Note Assessment/Plan: Patient seen and evaluated independently. Care plan reviewed with SPRIGGER Nohemi Haywood, please see her separate note for further details. 77 yo F with PMH of CAD, CHF presenting s/p mechanical fall with right intertrochanteric hip fracture # right hip fracture: with associated significant pain and inability to really move her leg. Ortho consulted and patient likely to go to OR in the am. For now , pain management overnight, NPO p MN. RCRI puts her at elevated risk (2.4% risk of adverse outcome in perioperative period) but without any active cardiac sxs so long as ECG (ordered) is unchanged, would not recommend delay in OR # CAD: hx of prior STEMI with stent to LAD approximately 2 years prior, will hold asa and f/u on ecg as above # chronic systolic heart failure: with EF as low as 20% following her TN but most recently improved to 50%, no s/s of decompensation and appears euvolemic, caution with fluids # hx of post op DVT: would recommend initiation of AC as soon as cleared by ortho and likely for several weeks post op so long as no surgical contraindication # fall: without hx of prior falls and patient notes being very independent at baseline. PT/OT. # IP status, patient will require > 48 hours stay for eval/mgmt of above. Patient new to my care. Old records reviewed and summarized as above. Further hx obtained from patients daughter present at bedside. Personally reviewed hip xray and pelvis CT with right sided hip fracture. Objective: Vital Signs Temp Pulse Resp BP Pulse Ox 36 C 59 L 16 133/74 H 92 07/13/18 14:40 07/13/18 16:12 07/13/18 16:12 07/13/18 16:12 07/13/18 16:12 PT 13.3 SEC (12.0-15.0) 07/13/18 15:50 INR 0.99 (0.83-1.16) 07/13/18 15:50 ICD10 Worksheet Patient Problems: Problems Problem Status Onset Acute TN, anterior wall Acute Chronic Disease Mgm/Transitional Care Acute Hip fracture Acute
--- NOTE | 2018-07-13 18:19 | PDGENHP ---
<Alaina Haywood - Last Filed: 07/13/18 18:44> History and Physical - Chief Complaint R hip pain - History of Present Illness 77 y/o female with history of 2016 VT with stent placement and IABP presents with right hip pain after sustaining a mechanical fall while playing ping-pong at the [employer]. She denies hitting her head or LOC. Pain at rest is 1/10 and with movement is 10/10. She cannot bear weight on RLE. Sensation intact. Hip x-ray and pelvis CT imaging shows acute oblique right proximal femur intertrochanteric fracture with mild displacement. Denies fever/chills, N/V, diarrhea, chest pains, SOB. Past Medical/Surgical History 1. VT with stent placement, with EF 30% (2015) 2. L TKA (2017) 3. Asthma (rarely uses rescue inhaler) 4. Arthritis 5. L Breast CA, lumpectomy 6. Diabetes 2 (Diet controlled) 7. Tonsillectomy 8. Osteopenia 9. DVT Vital Signs 133/74 59 HR 36.0 c 16 Respirations 92% RA History Information - Allergies/Home Medication List Allergies/Adverse Reactions: Sulfa (Sulfonamide Antibiotics) Allergy (Verified 07/13/18 16:27) Unknown Home Medications: Cholecalciferol Vit D3 [Vitamin D3 (*)] 2,000 unit PO DAILY 12/03/14 [Last Taken 07/13/18] Aspirin [Aspirin 81mg (*)] 81 mg PO HS 06/28/17 [Last Taken 07/12/18] Carvedilol [Coreg (*)] 1.5625 mg PO BIDMEAL 06/28/17 [Last Taken 07/13/18 AM] Herbals/Supplements -Info Only 1 ea PO DAILY 06/28/17 [Last Taken 1 Week Ago ~] [place]-3 Fatty Acids [Fish Oil 1000 mg (*)] 1,000 mg PO DAILY 06/28/17 [Last Taken 07/13/18] Atorvastatin Calcium [Lipitor 20 mg (*)] 20 mg PO HS 07/28/17 [Last Taken ] I have personally reviewed and updated: family history, medical history, social history, surgical history Past Medical History: Hypothyroidism - Past Medical History Additional medical history: See HPI List - Surgical History Reports: no pertinent surgical hx Additional surgical history: See HPI list - Family History Positive for: non-pertinent - Social History Smoking Status: Former smoker Alcohol Use: None Drug Use: None Additional social history: Retired Physicist. Lives alone in 2-story home with kitchen on second story. Premorbidly independent in all tasks. Review of Systems Review of Systems: ROS: 10pt was reviewed & negative except for what was stated in HPI & below Constitutional: Reports: recent injury, other (Besides this injury, she reports feeling great) EENMT: Reports: no symptoms Cardiac: Reports: no symptoms Respiratory: Reports: no symptoms Gastrointestinal: Reports: no symptoms Genitourinary: Reports: no symptoms Muscolosketal: Reports: joint pain, joint swelling Skin: Reports: no symptoms Neurological: Reports: no symptoms Hematologic/Lymphatic: Reports: no symptoms Immunologic/Allergy: Reports: other (Sulfa) Physical Exam Physical Exam: Temp Pulse Resp BP Pulse Ox 36 C 59 L 16 133/74 H 92 07/13/18 14:40 07/13/18 16:12 07/13/18 16:12 07/13/18 16:12 07/13/18 16:12 Constitutional: appears nourished, uncomfortable Eyes: PERRL, anicteric sclera, EOMI Ears, Nose, Mouth, Throat: moist mucous membranes, hearing normal, ears appear normal, no oral mucosal ulcers Cardiovascular: regular rate and rhythym, no murmur, rub, or gallop, No edema Peripheral Pulses: 2+: dorsalis-pedis (R) (Radial 2+), dorsalis-pedis (L) ( Radial 2+) Respiratory: reduced air movement (Diminished lung sounds throughout) Gastrointestinal: normoactive bowel sounds, soft, non-tender abdomen, no palpable masses Genitourinary: no bladder fullness, no bladder tenderness Skin: warm, normal color, no rashes or abrasions, no fluctuance, no induration, No mottled Musculoskeletal: joint tenderness, pain with ROM (R hip), generalized weakness, other Neurologic: AAOx3, sensation intact bilaterally, CN II-XII Intact Psychiatric: interacting appropriately, not anxious, not encephalopathic, thought process linear Lymph, Heme, Immunologic: no cervical LAD, no supraclavicular LAD Lab Data & Imaging Review 07/13/18 15:50 07/13/18 15:50 WBC 8.61 10^3/uL (3.80-9.50) 07/13/18 15:50 RBC 4.41 10^6/uL (4.18-5.33) 07/13/18 15:50 Hgb 13.7 g/dL (12.6-16.3) 07/13/18 15:50 Hct 40.9 % (38.0-47.0) 07/13/18 15:50 MCV 92.7 fL (81.5-99.8) 07/13/18 15:50 MCH 31.1 pg (27.9-34.1) 07/13/18 15:50 MCHC 33.5 g/dL (32.4-36.7) 07/13/18 15:50 RDW 12.5 % (11.5-15.2) 07/13/18 15:50 Plt Count 240 10^3/uL (150-400) 07/13/18 15:50 MPV 9.5 fL (8.7-11.7) 07/13/18 15:50 Neut % (Auto) 62.0 % (39.3-74.2) 07/13/18 15:50 Lymph % (Auto) 25.6 % (15.0-45.0) 07/13/18 15:50 [place] % (Auto) 6.7 % (4.5-13.0) 07/13/18 15:50 Eos % (Auto) 4.6 % (0.6-7.6) 07/13/18 15:50 Baso % (Auto) 0.8 % (0.3-1.7) 07/13/18 15:50 Nucleat RBC Rel Count 0.0 % (0.0-0.2) 07/13/18 15:50 Absolute Neuts (auto) 5.33 10^3/uL (1.70-6.50) 07/13/18 15:50 Absolute Lymphs (auto) 2.20 10^3/uL (1.00-3.00) 07/13/18 15:50 Absolute Monos (auto) 0.58 10^3/uL (0.30-0.80) 07/13/18 15:50 Absolute Eos (auto) 0.40 10^3/uL (0.03-0.40) 07/13/18 15:50 Absolute Basos (auto) 0.07 10^3/uL (0.02-0.10) 07/13/18 15:50 Absolute Nucleated RBC 0.00 10^3/uL (0-0.01) 07/13/18 15:50 Immature Gran % 0.3 % (0.0-1.1) 07/13/18 15:50 Immature Gran # 0.03 10^3/uL (0.00-0.10) 07/13/18 15:50 PT 13.3 SEC (12.0-15.0) 07/13/18 15:50 INR 0.99 (0.83-1.16) 07/13/18 15:50 APTT 29.2 SEC (23.0-38.0) 07/13/18 15:50 Sodium 138 mEq/L (135-145) 07/13/18 15:50 Potassium 4.2 mEq/L (3.3-5.0) 07/13/18 15:50 Chloride 107 mEq/L (97-110) 07/13/18 15:50 Carbon Dioxide 23 mEq/l (22-31) 07/13/18 15:50 Anion Gap 8 mEq/L (6-14) 07/13/18 15:50 BUN 18 mg/dL (7-23) 07/13/18 15:50 Creatinine 0.5 mg/dL (0.6-1.0) L 07/13/18 15:50 Estimated GFR > 60 07/13/18 15:50 Glucose 132 mg/dL (70-100) H 07/13/18 15:50 Calcium 8.6 mg/dL (8.5-10.4) 07/13/18 15:50 Assessment & Plan Plan: 77 y/o female slipped while playing ping-pong and landed on her right hip. Imaging reveals acute oblique right proximal femur intertrochanteric fracture with mild displacement. 1. Right hip fracture: RCRI score is 2 considering her extensive cardiac history. She has a 2.4% risk of experiencing an adverse event perioperatively for a non-cardiac surgery. She is at a higher surgical risk but it does not preclude her from surgery if necessary. -Ortho consulted and aware; Dr. Adithya Ho will consult with pt -NPO diet for possible surgery -EKG -Manage pain PO/IV -DVT in past surgeries; would recommend Lovenox SubQ post-operatively 2. CAD: Occurred in 2015. VT STEMI with stent. 3. Diabetes: diet controlled. a1c in May was 6.7%. Reports PCP wants it below 7%. Continue to monitor. 4. Fall: Considering pt is living independently in a two-story house, would be beneficial for PT/OT. Diet: NPO VTE ppx: SCDs Code: Full Dispo: Admit to inpatient <Micaela Snyder - Last Filed: 07/13/18 20:12> History and Physical - History of Present Illness Review of Systems Review of Systems: Physical Exam Physical Exam: Temp Pulse Resp BP Pulse Ox 37 C 63 16 106/68 94 07/13/18 19:52 07/13/18 19:52 07/13/18 19:52 07/13/18 19:52 07/13/18 19:52 Lab Data & Imaging Review 07/13/18 15:50 07/13/18 15:50 WBC 8.61 10^3/uL (3.80-9.50) 07/13/18 15:50 RBC 4.41 10^6/uL (4.18-5.33) 07/13/18 15:50 Hgb 13.7 g/dL (12.6-16.3) 07/13/18 15:50 Hct 40.9 % (38.0-47.0) 07/13/18 15:50 MCV 92.7 fL (81.5-99.8) 07/13/18 15:50 MCH 31.1 pg (27.9-34.1) 07/13/18 15:50 MCHC 33.5 g/dL (32.4-36.7) 07/13/18 15:50 RDW 12.5 % (11.5-15.2) 07/13/18 15:50 Plt Count 240 10^3/uL (150-400) 07/13/18 15:50 MPV 9.5 fL (8.7-11.7) 07/13/18 15:50 Neut % (Auto) 62.0 % (39.3-74.2) 07/13/18 15:50 Lymph % (Auto) 25.6 % (15.0-45.0) 07/13/18 15:50 [place] % (Auto) 6.7 % (4.5-13.0) 07/13/18 15:50 Eos % (Auto) 4.6 % (0.6-7.6) 07/13/18 15:50 Baso % (Auto) 0.8 % (0.3-1.7) 07/13/18 15:50 Nucleat RBC Rel Count 0.0 % (0.0-0.2) 07/13/18 15:50 Absolute Neuts (auto) 5.33 10^3/uL (1.70-6.50) 07/13/18 15:50 Absolute Lymphs (auto) 2.20 10^3/uL (1.00-3.00) 07/13/18 15:50 Absolute Monos (auto) 0.58 10^3/uL (0.30-0.80) 07/13/18 15:50 Absolute Eos (auto) 0.40 10^3/uL (0.03-0.40) 07/13/18 15:50 Absolute Basos (auto) 0.07 10^3/uL (0.02-0.10) 07/13/18 15:50 Absolute Nucleated RBC 0.00 10^3/uL (0-0.01) 07/13/18 15:50 Immature Gran % 0.3 % (0.0-1.1) 07/13/18 15:50 Immature Gran # 0.03 10^3/uL (0.00-0.10) 07/13/18 15:50 PT 13.3 SEC (12.0-15.0) 07/13/18 15:50 INR 0.99 (0.83-1.16) 07/13/18 15:50 APTT 29.2 SEC (23.0-38.0) 07/13/18 15:50 Sodium 138 mEq/L (135-145) 07/13/18 15:50 Potassium 4.2 mEq/L (3.3-5.0) 07/13/18 15:50 Chloride 107 mEq/L (97-110) 07/13/18 15:50 Carbon Dioxide 23 mEq/l (22-31) 07/13/18 15:50 Anion Gap 8 mEq/L (6-14) 07/13/18 15:50 BUN 18 mg/dL (7-23) 07/13/18 15:50 Creatinine 0.5 mg/dL (0.6-1.0) L 07/13/18 15:50 Estimated GFR > 60 07/13/18 15:50 Glucose 132 mg/dL (70-100) H 07/13/18 15:50 Calcium 8.6 mg/dL (8.5-10.4) 07/13/18 15:50 Assessment & Plan Assessment: Hip fracture (Acute) Plan: Patient seen and evaluated independently, care plan reviewed with DORENE Haywood and agree with her assessment and plan as outlined above.
[2018-07-13] MEDS: HYDROmorphONE/DILAUDID 1 MG/ML INJ IVP PRN (19:44)
[2018-07-13] MEDS: oxyCODONE IR 5 MG TAB PO PRN (21:01)
[2018-07-14] MEDS: oxyCODONE IR 5 MG TAB PO PRN ×4 (00:17→20:34)
[2018-07-14] MEDS: HYDROmorphONE/DILAUDID 1 MG/ML INJ IVP PRN ×2 (01:27→06:33)
[2018-07-14] MEDS ORDERED: TRANEXAMIC ACID 1,000 MG in NS 100 ML IV ONE (06:00)
[2018-07-14] MEDS ORDERED: ceFAZolin 2 GM/DEXTROSE 100 ML IV ONE (06:00)
[2018-07-14] MEDS ORDERED: ACETAMINOPHEN 325 MG TAB PO ONE (06:00)
--- NOTE | 2018-07-14 09:08 | PDMN ---
Medical Necessity Medical necessity: Pt meets IP criteria per MD & RICARDO VELEZ (Musculoskeletal Disease); est los >2 mn for eval/tx of R hip fx s/p fall; admit for further monitoring & Ortho consult; comorbid advanced age, extensive cardiac hx, DVT, diabetes; per order 07/13/18
[2018-07-14] MEDS ORDERED: BUPIVACAINE/EPI 0.5% 30 ML SDV ONE (09:23)
[2018-07-14] MEDS ORDERED: POLYMYXIN B SULFATE 500,000 UNIT/10 ML SYR IRR ONE (09:24)
[2018-07-14] MEDS ORDERED: BACITRACIN 50,000 UNITS/10 ML SYR IRR ONE (09:24)
[2018-07-14] MEDS ORDERED: CEFAZOLIN 2 GM/DEXTROSE/100 ML BAG IV ONE (09:33)
[2018-07-14] MEDS ORDERED: MIDAZOLAM 2 MG/2 ML VIAL IVP ONE (09:47)
--- NOTE | 2018-07-14 09:47 | PDANEPAE ---
ANE History of Present Illness tfn ANE Past Medical History - Cardiovascular History Hx Hypertension: No Hx Arrhythmias: No Hx Chest Pain: No Hx Coronary Artery / Peripheral Vascular Disease: Yes Hx CHF / Valvular Disease: No Hx Palpitations: No Cardiovascular History Comment: STEMI 07-24-16 w/ coronary stent. On Plavix - Pulmonary History Hx COPD: No Hx Asthma/Reactive Airway Disease: No Hx Recent Upper Respiratory Infection: No Hx Oxygen in Use at Home: No Hx Sleep Apnea: No Sleep Apnea Screening Result - Last Documented: Negative Pulmonary History Comment: asthma while living in [place]. in [place] since '. - Neurologic History Hx Cerebrovascular Accident: No Hx Seizures: No Hx Dementia: No - Endocrine History Hx Diabetes: Yes Hypothyroid: No Hyperthyroid: No Obesity: mild Endocrine History Comment: well controlled w/diet. Hypthyroid. - Renal History Hx Renal Disorders: No - Liver History Hx Hepatic Disorders: No - Cancer History Hx Cancer: Yes Cancer History Comment: DCIS L breast - Congenital Disorder History Hx Congenital Disorders: No - GI History GERD: mild Hx Gastrointestinal Disorders: Yes Gastrointestinal History Comment: occ Pepcid for heartburn w/Rx at night - Other Health History Other Health History: OA L knee. plan for L eye cataract:06-29-17. - Chronic Pain History Chronic Pain: Yes - Surgical History Prior Surgeries: R eye cataract 05-20-17. lumpectomy L breast . tonsillectomy. cyst excision mouth . coronary stent 07-15 ANE Review of Systems Review of Systems: - Exercise capacity Exercise capacity: >=4 METS ANE Patient History - Allergies Allergies/Adverse Reactions: Sulfa (Sulfonamide Antibiotics) Allergy (Verified 07/13/18 16:27) Unknown - Home Medications Home medications: home medication list seen and reviewed Home Medications: Cholecalciferol Vit D3 [Vitamin D3 (*)] 2,000 unit PO DAILY 12/03/14 [Last Taken 07/13/18] Aspirin [Aspirin 81mg (*)] 81 mg PO HS 06/28/17 [Last Taken 07/12/18] Carvedilol [Coreg (*)] 1.5625 mg PO BIDMEAL 06/28/17 [Last Taken 07/13/18 AM] Herbals/Supplements -Info Only 1 ea PO DAILY 06/28/17 [Last Taken 1 Week Ago ~] [place]-3 Fatty Acids [Fish Oil 1000 mg (*)] 1,000 mg PO DAILY 06/28/17 [Last Taken 07/13/18] Atorvastatin Calcium [Lipitor 20 mg (*)] 20 mg PO HS 07/28/17 [Last Taken ] - NPO status NPO Status: no food or drink >8 hours NPO Since - Liquids (Date): 07/14/18 NPO Since - Liquids (Time): 00:01 NPO Since - Solids (Date): 07/14/18 NPO Since - Solids (Time): 00:01 - Anes Hx Anes Hx: no prior problems - Smoking Hx Smoking Status: Former smoker - Alcohol Use Alcohol Use: None ANE Labs/Vital Signs - Labs Result Diagrams: 07/13/18 15:50 07/13/18 15:50 - Vital Signs Blood Pressure: 96/55 Heart Rate: 65 Respiratory Rate: 16 O2 Sat (%): 99 Height: 157.48 cm Weight: 52.163 kg ANE Physical Exam - Airway Mallampati Score: Class 2 Mouth exam: normal dental/mouth exam - Cardiovascular Cardiovascular: regular rate and rhythym - ASA Status ASA Status: II ANE Anesthesia Plan Anesthesia Plan: GA w LMA
[2018-07-14] MEDS ORDERED: MIDAZOLAM 2 MG/2 ML VIAL ONE (09:49)
--- NOTE | 2018-07-14 09:50 | ASMTCMCOM ---
CM Note CM Note Notes: Pt has hip fx after fall, to OR today. No therapies ordered at this time, anticipate therapies will be ordered and they will work w pt when appropriate. CM to follow for d/c planning. Date Signed: 07/14/2018 09:49 AM Electronically Signed By:EULALIA Lopez
[2018-07-14] MEDS ORDERED: fentaNYL 100 MCG/2 ML INJ ONE (09:53)
[2018-07-14] MEDS ORDERED: PROPOFOL 200 MG/20 ML VIAL ONE (09:53)
[2018-07-14] MEDS ORDERED: ROCURONIUM 50 MG/5 ML VIAL ONE (09:54)
[2018-07-14] MEDS ORDERED: KETOROLAC 30 MG/1 ML SDV ONE (09:54)
[2018-07-14] MEDS ORDERED: DEXAMETHASONE 4 MG/ML VIAL ONE (09:54)
[2018-07-14] MEDS ORDERED: ONDANSETRON 4 MG/2 ML VIAL ONE (09:54)
[2018-07-14] MEDS ORDERED: LIDOCAINE 2% 2 ML INJ ONE ×3 (09:55)
[2018-07-14] MEDS ORDERED: LR 1,000 ML IV ONE (10:04)
[2018-07-14] MEDS ORDERED: PHENYLEPHRINE HCL 100 MCG/ML SYR ONE (10:33)
[2018-07-14] MEDS ORDERED: ePHEDrine SULFATE 25 MG/5 ML SYR ONE (10:41)
[2018-07-14] MEDS ORDERED: NALOXONE HCL 0.4 MG/ML INJ IVP PRN (11:20)
[2018-07-14] MEDS ORDERED: ALBUTEROL 3 ML DEYVIAL IH PRN (11:20)
[2018-07-14] MEDS ORDERED: fentaNYL 100 MCG/2 ML INJ IVP PRN (11:20)
[2018-07-14] MEDS ORDERED: ONDANSETRON 4 MG/2 ML VIAL IVP PRN (11:20)
[2018-07-14] MEDS ORDERED: SUGAMMADEX SODIUM 200 MG/2 ML VIAL IVP ONE (11:23)
[2018-07-14] MEDS ORDERED: HYDROmorphONE/DILAUDID 2 MG/ML INJ ONE (12:05)
--- NOTE | 2018-07-14 12:08 | GCON ---
ORTHOPEDIC CONSULTATION REASON FOR CONSULTATION: Right hip injury. HISTORY OF PRESENT ILLNESS: This is a 77-year-old female who was playing [employer]-pong, slipped, and fel l, landing onto her right side. She had immediate pain and was unable to weightbear. She was presen susan to the emergency department. Imaging revealed a minimally displaced intertrochanteric right hip fracture. The patient does have a significant medical history with an IA/stent placement in 2016. A lso had a total knee arthroplasty 1 year ago. She currently denies significant pain while at rest. She denies fevers, chills, nausea, vomiting, chest pain, shortness of breath, numbness, or tingling. PAST MEDICAL HISTORY: Significant for IA with stent placement, asthma, breast cancer status post lum pectomy, type 2 diabetes, osteopenia, and a likely history of DVT. This was debated by the patient; however, the patient's daughter states that they think her IA was likely caused by a thromboembolic e vent. SURGICAL HISTORY: Includes a left total knee arthroplasty, tonsillectomy as above. ALLERGIES: Include sulfa. HOME MEDICATIONS: Reviewed and verified. SOCIAL HISTORY: Former smoker. REVIEW OF SYSTEMS: 10-point review of systems negative except for HPI. PHYSICAL EXAM: GENERAL APPEARANCE: She is awake, alert, and oriented x3 in no acute distress. LUNG S: She has easy, nonlabored breathing. EXTREMITIES: The right leg is held in a flexed and external ly rotated position and is unable to be moved without significant pain. SKIN: Intact. There is no significant bruising, swelling. NEUROLOGIC: Sensation is intact to light touch from L4 to S1. Motor : Intact to EHL, FHL, tibialis anterior, gastrocsoleus. Palpable DP, PT pulses. IMAGING: X-rays and CT scan reveal a minimally displaced right intertrochanteric hip fracture. ASSESSMENT/PLAN: 77-year-old female with right intertrochanteric hip fracture. Recommend surgical f ixation to increase mobility, decrease morbidity, and mortality. Risks, benefits, pros and cons of t he surgery were discussed with the patient. These include, but were not limited to, bleeding, infect ion, damage to surrounding anatomic structures, hip pain, malunion, nonunion, implant failure, need f or repeat surgery, and the inherent increased risk that comes along with a hip fracture, including in creased morbidity and mortality. This was also discussed with the patient's daughter. She understoo d, agreed, and signed her consent. /[id number]/MODL
[2018-07-14] MEDS: HYDROmorphONE/DILAUDID 2 MG/ML INJ IVP PRN ×3 (12:10→12:37)
--- NOTE | 2018-07-14 12:49 | GOP ---
DATE OF OPERATION: 07/14/2018 SURGEON: Adithya Ho MD COMPUTER NETWORK SUPPORT SPECIALIST: John Roche, [employer], LSA. Parking Enforcement Specialist was required for the procedure due to the comple xity of the case, patient's condition for positioning, prepping and draping, retraction, closure. ANESTHESIA: General. PREOPERATIVE DIAGNOSIS: Right hip intertrochanteric fracture. POSTOPERATIVE DIAGNOSIS: Right hip intertrochanteric fracture. PROCEDURE PERFORMED: Right hip cephalomedullary fixation of the intertrochanteric fracture. FINDINGS: SPECIMENS: None. ESTIMATED BLOOD LOSS: 200 cc. INDICATIONS: Patient had a mechanical fall landing on her right side, sustaining the above fracture. Risks and benefits of the procedure were discussed with the patient, including malunion, nonunion, symptomatic hardware, hardware failure, possibility of femoral head osteonecrosis, and the increased risk of morbidity and mortality given the nature of the fracture. The patient and daughter verbalize d an understanding the risks and benefits of procedure and signed informed consent. DESCRIPTION OF PROCEDURE: Patient was taken to the holding area. Operative consent was signed. Pat ient taken to the operative room. After smooth induction of general anesthesia, patient was placed s upine on the fracture table. Right hip and lower extremity were prepped and draped in usual sterile fashion. Operative site was confirmed by signature. Time-out performed. Allergies reviewed. Antib iotics and TSA administered. Prior to prepping, draping, reduction of the fracture was confirmed non -sterilely with fluoroscopic guidance. Marcaine 0.25% with epinephrine was administered. An oblique longitudinal incision was made proximal to greater trochanter through the skin and soft ti ssues, followed by incision through the tensor fascia murtaza. Blunt finger dissection was made down to the greater trochanter. A guide pin was placed at the tip of the greater trochanter and this was co nfirmed to be center-center on the AP and lateral x-rays. Entry reamer was then placed through the g reater trochanter down to the level of the lesser. 12 mm short TFN was placed through the entry hole , and depth was confirmed under fluoroscopy. Next, the location of the lag screw was inserted. Insertion site on the skin was marked and infiltra susan with local anesthesia. A 10 blade was used through the skin and lateral fascia. Blunt dissectio n with hemostats was made down through the muscle to bone. Trocar was then inserted through the aimi ng arm guide and down to the lateral aspect of the femur. Guide pin was then placed laterally throug h the cortex of the femur, up through the neck and head of the femur. Adequate and accurate placemen t of this pin was confirmed under fluoroscopy on AP and lateral views. This guide pin was then over- reamed, tapped and measured to be 90 mm in length. A lag screw was then placed through the aiming ar m at and through the femoral neck and head. Adequate, accurate placement was confirmed under fluoros copy in AP and lateral views. Compression bolt was then placed and used to compress across the fract ure site. This was dynamically locked. The distal locking screw was then placed through the distal aspect of the cephalomedullary device and this was measured to be 32 mm in length, confirmed on fluor oscopy. Aiming arm was then removed and anatomic reduction was achieved. Final x-rays were taken, [facility] AP and lateral x-rays. The wounds were copiously irrigated. Fascia was closed with 0 Vicryl, subcutaneous tissue with 2-0 M onocryl, and skin with 3-0 Monocryl. Dressings consisted of Dermabond, Steri-Strips, Telfa, and Tega derm. At the end of the case, all surgical counts were correct. The patient was safely awakened, ta ramiro to recovery room in stable condition. All critical portions of the procedure were performed by myself, Dr. Ho. This operative note was c reated by myself, Dr. Ho. I was immediately available for emergency cross-coverage at all times. DRAINS: None. COMPLICATIONS: None. IMPLANTS: Synthes TFN 12 mm in diameter 130 degrees, lag screw 90 mm, distal locking screw 32 mm. /[id number]/MODL
--- NOTE | 2018-07-14 15:40 | HOSPPROG ---
Hospitalist Progress Note Assessment/Plan: 77 y/o female slipped while playing ping-pong and landed on her right hip. Imaging reveals acute oblique right proximal femur intertrochanteric fracture with mild displacement. 1. Right hip fracture: RCRI score is 2 considering her extensive cardiac history. She has a 2.4% risk of experiencing an adverse event perioperatively for a non-cardiac surgery. She is at a higher surgical risk but it does not preclude her from surgery if necessary. -Ortho consulted and aware; plan for OR today -NPO diet for possible surgery -Manage pain PO/IV -DVT in past surgeries; would recommend Lovenox SubQ post-operatively 2. CAD: Occurred in 2016. [place] STEMI with stent. 3. Diabetes: diet controlled. a1c in May was 6.7%. Reports PCP wants it below 7%. Continue to monitor. 4. Fall: Considering pt is living independently in a two-story house, would be beneficial for PT/OT. Diet: NPO VTE ppx: SCDs Code: Full Dispo: Pending clinical course Subjective: Patient reports pain with movement Objective: Vital Signs Temp Pulse Resp BP Pulse Ox 36.6 C 73 16 84/61 L 94 07/14/18 15:18 07/14/18 15:18 07/14/18 15:18 07/14/18 15:18 07/14/18 15:18 07/13/18 07/14/18 07/15/18 05:59 05:59 05:59 Intake Total 1400 1120 Output Total 500 975 Balance 900 145 PT 13.3 SEC (12.0-15.0) 07/13/18 15:50 INR 0.99 (0.83-1.16) 07/13/18 15:50 - Physical Exam Constitutional: no apparent distress Eyes: PERRL Ears, Nose, Mouth, Throat: moist mucous membranes Cardiovascular: regular rate and rhythym Respiratory: no respiratory distress Gastrointestinal: soft, non-tender abdomen Skin: normal color Musculoskeletal: pain with ROM Neurologic: AAOx3 Psychiatric: interacting appropriately ICD10 Worksheet Patient Problems: Problems Problem Status Onset Hip fracture Acute Acute [place], anterior wall Acute Chronic Disease Mgm/Transitional Care Acute
[2018-07-15] MEDS: oxyCODONE IR 5 MG TAB PO PRN ×7 (01:27→23:24)
--- NOTE | 2018-07-15 07:40 | SOAPPROG ---
SOAP Progress Note Assessment/Plan: Assessment: Postop day 1 status post right hip closed reduction internal fixation Plan: Weight bear as tolerated, is PT/OT DVT prophylaxis: SCDs Alejandro hose Lovenox 40 mg daily Incentive spirometry 10 times per hour Analgesics: Limit NSAIDs, wean off narcotics when tolerated Disposition: Likely will require SNF 07/15/18 07:37 Subjective: No acute events. Pain well controlled. Denies fevers chills nausea vomiting chest pain shortness of breath numbness or tingling. Objective: Vital Signs Temp Pulse Resp BP Pulse Ox 36.9 C 72 14 105/59 L 96 07/15/18 04:00 07/15/18 04:00 07/15/18 04:00 07/15/18 04:00 07/15/18 04:00 07/14/18 07/15/18 07/16/18 05:59 05:59 05:59 Intake Total 1400 2175 Output Total 500 1075 Balance 900 1100 PT 13.3 SEC (12.0-15.0) 07/13/18 15:50 INR 0.99 (0.83-1.16) 07/13/18 15:50 Awake alert and oriented x3 No acute distress Easy nonlabored breathing Right hip: Incision clean dry intact no erythema drainage or signs of infection Mild swelling no ecchymosis Drain site clean dry and intact Sensation intact to light touch L4 through S1 Motor intact to EHL FHL tibialis anterior gastrocsoleus Palpable DP PT pulses - Time Spent With Patient Time Spent With Patient: 10 ICD10 Worksheet Patient Problems: Problems Problem Status Onset Hip fracture Acute Acute PA, anterior wall Acute Chronic Disease Mgm/Transitional Care Acute
[2018-07-15] MEDS: ENOXAPARIN 40 MG/0.4 ML SYR SC SCH (08:27)
[2018-07-15] MEDS ORDERED: LEVOTHYROXINE 75 MCG TAB PO SCH (10:45)
[2018-07-15] MEDS: CHOLECALCIFEROL VIT D3 1,000 UNITS TAB PO SCH (11:58)
[2018-07-15] MEDS: OMEGA-3 FATTY ACIDS 1,000 MG CAP PO SCH (11:58)
[2018-07-15] MEDS: CETIRIZINE 10 MG TAB PO SCH (11:58)
[2018-07-15] MEDS: CYANO/VITAMIN B12 1000 MCG TAB PO SCH (11:59)
[2018-07-15] MEDS: LEVOTHYROXINE 75 MCG TAB PO SCH (11:59)
--- NOTE | 2018-07-15 13:04 | HOSPPROG ---
Hospitalist Progress Note Assessment/Plan: 77 y/o female slipped while playing ping-pong and landed on her right hip. Imaging reveals acute oblique right proximal femur intertrochanteric fracture with mild displacement. 1. Right hip fracture: -Ortho consulted, s/p OR yesterday -Manage pain PO/IV -DVT in past surgeries; Lovenox SubQ post-operatively 2. CAD: Occurred in 2015. [place] STEMI with stent. Restart ASA 81 mg qd 3. Diabetes: diet controlled. a1c in May was 6.7%. Reports PCP wants it below 7%. Continue to monitor. 4. Fall: Considering pt is living independently in a two-story house, would be beneficial for PT/OT. Diet: NPO VTE ppx: SCDs Code: Full Dispo: Pending clinical course, IP rehab pending. Subjective: Patient reports episodes of sharp pain with movement Objective: Vital Signs Temp Pulse Resp BP Pulse Ox 36.8 C 100 16 105/58 L 92 07/15/18 12:00 07/15/18 12:00 07/15/18 12:00 07/15/18 12:00 07/15/18 12:00 Laboratory Results 07/15/18 07:50 07/14/18 07/15/18 07/16/18 05:59 05:59 05:59 Intake Total 1400 2175 Output Total 500 1075 200 Balance 900 1100 -200 PT 13.3 SEC (12.0-15.0) 07/13/18 15:50 INR 0.99 (0.83-1.16) 07/13/18 15:50 - Physical Exam Constitutional: no apparent distress Eyes: PERRL Ears, Nose, Mouth, Throat: moist mucous membranes Cardiovascular: regular rate and rhythym Respiratory: no respiratory distress Gastrointestinal: soft, non-tender abdomen Genitourinary: no bladder tenderness Skin: warm Musculoskeletal: pain with ROM Neurologic: AAOx3 Psychiatric: interacting appropriately ICD10 Worksheet Patient Problems: Problems Problem Status Onset Hip fracture Acute Acute VT, anterior wall Acute Chronic Disease Mgm/Transitional Care Acute
[2018-07-15] MEDS ORDERED: CARVEDILOL 3.125 MG TAB PO SCH (18:00)
[2018-07-15] MEDS: ATORVASTATIN CALCIUM 20 MG TAB PO SCH (19:33)
[2018-07-15] MEDS: ASPIRIN 81 MG CHEWABLE TAB PO SCH (19:33)
[2018-07-16] MEDS: LEVOTHYROXINE 75 MCG TAB PO SCH (05:19)
[2018-07-16] MEDS: oxyCODONE IR 5 MG TAB PO PRN (05:19)
[2018-07-16] MEDS ORDERED: LEVOTHYROXINE 75 MCG TAB PO SCH (06:00)
[2018-07-16] MEDS: ACETAMINOPHEN 325 MG TAB PO PRN ×2 (07:49→19:09)
[2018-07-16] MEDS ORDERED: CETIRIZINE 10 MG TAB PO SCH (09:00)
[2018-07-16] MEDS ORDERED: CHOLECALCIFEROL VIT D3 1,000 UNITS TAB PO SCH (09:00)
[2018-07-16] MEDS ORDERED: OMEGA-3 FATTY ACIDS 1,000 MG CAP PO SCH (09:00)
[2018-07-16] MEDS ORDERED: Herbals/Supplements -Info Only PO SCH (09:00)
[2018-07-16] MEDS ORDERED: CYANO/VITAMIN B12 1000 MCG TAB PO SCH (09:00)
[2018-07-16] MEDS: OMEGA-3 FATTY ACIDS 1,000 MG CAP PO SCH ×2 (09:05→09:11)
[2018-07-16] MEDS: CHOLECALCIFEROL VIT D3 1,000 UNITS TAB PO SCH (09:06)
[2018-07-16] MEDS: CYANO/VITAMIN B12 1000 MCG TAB PO SCH (09:06)
[2018-07-16] MEDS: CETIRIZINE 10 MG TAB PO SCH (09:06)
[2018-07-16] MEDS: ENOXAPARIN 40 MG/0.4 ML SYR SC SCH (09:07)
[2018-07-16] MEDS ORDERED: POLYETHYLENE GLYCOL 3350 17 GM PKT PO PRN (10:54)
[2018-07-16] MEDS ORDERED: LACTULOSE 20 GM/30 ML UDCUP PO PRN (10:54)
[2018-07-16] MEDS ORDERED: MAGNESIUM HYDROXIDE 30 ML UDCUP PO PRN (10:54)
[2018-07-16] MEDS ORDERED: BISACODYL 10 MG SUPP PR PRN (10:54)
--- NOTE | 2018-07-16 11:18 | HOSPPROG ---
Hospitalist Progress Note Assessment/Plan: 77 y/o female slipped while playing ping-pong and landed on her right hip. Imaging reveals acute oblique right proximal femur intertrochanteric fracture with mild displacement. 1. Right hip fracture: -Ortho consulted, s/p OR on 07/14 -Manage pain PO/IV -DVT in past surgeries; Lovenox SubQ post-operatively 2. CAD: Occurred in 2015. [place] STEMI with stent. Restarted ASA 81 mg qd 3. Diabetes: diet controlled. a1c in May was 6.7%. Reports PCP wants it below 7%. Continue to monitor. 4. Fall: Considering pt is living independently in a two-story house, would be beneficial for PT/OT. Diet: NPO VTE ppx: SCDs Code: Full Dispo: Pending clinical course, IP rehab pending. Subjective: Pateint reports pain in lower extremity Objective: Vital Signs Temp Pulse Resp BP Pulse Ox 36.8 C 78 16 85/56 L 97 07/16/18 07:21 07/16/18 07:21 07/16/18 07:21 07/16/18 07:21 07/16/18 07:21 Laboratory Results 07/15/18 07:50 07/15/18 07/16/18 07/17/18 05:59 05:59 05:59 Intake Total 2175 250 Output Total 1075 200 Balance 1100 -200 250 PT 13.3 SEC (12.0-15.0) 07/13/18 15:50 INR 0.99 (0.83-1.16) 07/13/18 15:50 - Physical Exam Constitutional: no apparent distress Eyes: PERRL Ears, Nose, Mouth, Throat: moist mucous membranes Cardiovascular: regular rate and rhythym Respiratory: no respiratory distress Gastrointestinal: normoactive bowel sounds, soft, non-tender abdomen Skin: normal color Musculoskeletal: pain with ROM Neurologic: AAOx3 Psychiatric: interacting appropriately ICD10 Worksheet Patient Problems: Problems Problem Status Onset Hip fracture Acute Acute [place], anterior wall Acute Chronic Disease Mgm/Transitional Care Acute
--- NOTE | 2018-07-16 12:27 | ASMTCMCOM ---
CM Note CM Note Notes: Inpatient rehab eval in process, will resume Wednesday. Pt adamant she wants to wait until Wednesday to see if she can get into [facility] inpatient rehab. Pt provided SNF list as she may not qualify for inpatient rehab. Pt should d/c Wednesday. Date Signed: 07/16/2018 12:26 PM Electronically Signed By:EULALIA Lopez
[2018-07-16] MEDS: traMADol 50 MG TAB PO PRN ×2 (14:02→19:59)
[2018-07-16] MEDS: ATORVASTATIN CALCIUM 20 MG TAB PO SCH (19:58)
[2018-07-16] MEDS: ASPIRIN 81 MG CHEWABLE TAB PO SCH (19:59)
[2018-07-16] MEDS: SENNOSIDES/DOCUSATE SODIUM TAB PO SCH (20:02)
[2018-07-17] MEDS: LEVOTHYROXINE 75 MCG TAB PO SCH (04:20)
[2018-07-17] MEDS: ACETAMINOPHEN 325 MG TAB PO PRN ×2 (04:20→14:35)
[2018-07-17] MEDS: ENOXAPARIN 40 MG/0.4 ML SYR SC SCH (08:31)
[2018-07-17] MEDS: CETIRIZINE 10 MG TAB PO SCH (08:31)
[2018-07-17] MEDS: CYANO/VITAMIN B12 1000 MCG TAB PO SCH (08:32)
[2018-07-17] MEDS: CHOLECALCIFEROL VIT D3 1,000 UNITS TAB PO SCH (08:32)
[2018-07-17] MEDS: OMEGA-3 FATTY ACIDS 1,000 MG CAP PO SCH (08:33)
[2018-07-17] MEDS: SENNOSIDES/DOCUSATE SODIUM TAB PO SCH ×2 (08:33→20:57)
[2018-07-17] MEDS: traMADol 50 MG TAB PO PRN ×2 (08:37→20:56)
--- NOTE | 2018-07-17 11:06 | HOSPPROG ---
Hospitalist Progress Note Assessment/Plan: 77 y/o female slipped while playing ping-pong and landed on her right hip. Imaging reveals acute oblique right proximal femur intertrochanteric fracture with mild displacement. 1. Right hip fracture: -Ortho consulted, s/p OR on 07/14 -Manage pain PO/IV -DVT in past surgeries; Lovenox SubQ post-operatively 2. CAD: Occurred in 2015. [place] STEMI with stent. Restarted ASA 81 mg qd 3. Diabetes: diet controlled. a1c in May was 6.7%. Reports PCP wants it below 7%. Continue to monitor. 4. Fall: Considering pt is living independently in a two-story house, would be beneficial for PT/OT. Diet: NPO VTE ppx: SCDs Code: Full Dispo: Pending clinical course, IP rehab pending. Subjective: Patient reports improving pain in LE today Objective: Vital Signs Temp Pulse Resp BP Pulse Ox 36.5 C 90 16 95/54 L 94 07/17/18 07:37 07/17/18 07:37 07/17/18 07:37 07/17/18 07:37 07/17/18 07:37 Laboratory Results 07/17/18 04:42 07/16/18 07/17/18 07/18/18 05:59 05:59 05:59 Intake Total 750 Output Total 200 300 Balance -200 450 PT 13.3 SEC (12.0-15.0) 07/13/18 15:50 INR 0.99 (0.83-1.16) 07/13/18 15:50 - Physical Exam Constitutional: no apparent distress Eyes: PERRL Ears, Nose, Mouth, Throat: moist mucous membranes Cardiovascular: regular rate and rhythym Respiratory: no respiratory distress Gastrointestinal: soft, non-tender abdomen Genitourinary: No caputo in urethra Skin: warm Musculoskeletal: pain with ROM Neurologic: AAOx3 Psychiatric: interacting appropriately ICD10 Worksheet Patient Problems: Problems Problem Status Onset Hip fracture Acute Acute SC, anterior wall Acute Chronic Disease Mgm/Transitional Care Acute
[2018-07-17] MEDS: ASPIRIN 81 MG CHEWABLE TAB PO SCH (20:56)
[2018-07-17] MEDS: ATORVASTATIN CALCIUM 20 MG TAB PO SCH (20:56)
[2018-07-18] MEDS: ACETAMINOPHEN 325 MG TAB PO PRN ×2 (05:42→13:40)
[2018-07-18] MEDS: traMADol 50 MG TAB PO PRN ×2 (05:42→13:39)
[2018-07-18] MEDS: LEVOTHYROXINE 75 MCG TAB PO SCH (05:42)
[2018-07-18] MEDS: OMEGA-3 FATTY ACIDS 1,000 MG CAP PO SCH (08:47)
[2018-07-18] MEDS: SENNOSIDES/DOCUSATE SODIUM TAB PO SCH (08:48)
[2018-07-18] MEDS: ENOXAPARIN 40 MG/0.4 ML SYR SC SCH (08:48)
[2018-07-18] MEDS: CHOLECALCIFEROL VIT D3 1,000 UNITS TAB PO SCH (08:48)
[2018-07-18] MEDS: CYANO/VITAMIN B12 1000 MCG TAB PO SCH (08:48)
[2018-07-18] MEDS: CETIRIZINE 10 MG TAB PO SCH (08:49)
--- NOTE | 2018-07-18 12:13 | HOSPPROG ---
Hospitalist Progress Note Assessment/Plan: 77 y/o female slipped while playing ping-pong and landed on her right hip. Imaging reveals acute oblique right proximal femur intertrochanteric fracture with mild displacement. 1. Right hip fracture: -Ortho consulted, s/p OR on 07/14 -Manage pain PO/IV -DVT in past surgeries; Lovenox SubQ post-operatively 2. CAD: Occurred in 2016. [place] STEMI with stent. Restarted ASA 81 mg qd 3. Diabetes: diet controlled. a1c in May was 6.7%. Reports PCP wants it below 7%. Continue to monitor. 4. Fall: Considering pt is living independently in a two-story house, would be beneficial for PT/OT. Diet: NPO VTE ppx: SCDs Code: Full Dispo: Pending clinical course, IP rehab denied patient today, CM working on SNF placement, likely today vs. tomorrow Subjective: Patient reports some diffculty with transfers today Objective: Vital Signs Temp Pulse Resp BP Pulse Ox 36.4 C 73 13 115/64 96 07/18/18 07:32 07/18/18 07:32 07/18/18 07:32 07/18/18 07:32 07/18/18 07:32 Laboratory Results 07/17/18 04:42 07/17/18 07/18/18 07/19/18 05:59 05:59 05:59 Intake Total 750 250 Output Total 300 Balance 450 250 PT 13.3 SEC (12.0-15.0) 07/13/18 15:50 INR 0.99 (0.83-1.16) 07/13/18 15:50 - Physical Exam Constitutional: no apparent distress Eyes: PERRL Ears, Nose, Mouth, Throat: moist mucous membranes Cardiovascular: regular rate and rhythym Respiratory: no respiratory distress Gastrointestinal: soft, non-tender abdomen Skin: warm Musculoskeletal: pain with ROM Neurologic: AAOx3 Psychiatric: interacting appropriately ICD10 Worksheet Patient Problems: Problems Problem Status Onset Hip fracture Acute Acute [place], anterior wall Acute Chronic Disease Mgm/Transitional Care Acute
--- NOTE | 2018-07-18 13:48 | PDIAF ---
- Diagnosis Diagnosis: Hip Fracture Code Status: Full Code - Medication Management Additional Medication Instructions: Lovenox for 1 week, end date 08/21 Discharge Medications: electronically signed and located in the Home Medication List. - Orders Services needed: Registered Nurse, Physical Therapy, Occupational Therapy Additional Instructions: WEIGHT BEARING TOLERATED with assistance PT/OT F/u in 14 days - Follow Up Care Current Providers and Referrals: Adithya Ho MD [Medical Doctor] - follow up in 2 weeks Patient,NotPresent [Unknown] - As per Instructions
--- NOTE | 2018-07-18 13:50 | PDDCSUM ---
Discharge Summary Discharge Summary: Date of Admission: 07/13/2018 Date of Discharge: 07/18/2018 Consults: Orthopaedics Followup: PCP, Ortho Hospital Course Problem List: 77 y/o female slipped while playing ping-pong and landed on her right hip. Imaging reveals acute oblique right proximal femur intertrochanteric fracture with mild displacement. 1. Right hip fracture: -Ortho consulted, s/p OR on 07/14 -Manage pain PO/IV -DVT in past surgeries; Lovenox SubQ post-operatively for 1 week, end date 08/21 2. CAD: Occurred in 2015. [place] STEMI with stent. Restarted ASA 81 mg qd 3. Diabetes: diet controlled. a1c in May was 6.7%. Reports PCP wants it below 7%. Continue to monitor. 4. Fall: Considering pt is living independently in a two-story house, would be beneficial for PT/OT. Time spent on discharge was >35 minutes with >50% of time spent on patient education and counseling.
--- NOTE | 2018-07-18 15:17 | ASMTLACE ---
LACE Length of stay for Answers: 4-6 days current admission Acuity / Level of Answers: Yes Care: Did the patient have an inpatient admission? Comorbidities - select Answers: Diabetes (uncontrolled or all that apply controlled) Opioid dependence / Chronic pain Previous myocardial infarction Other Notes: Cognitive impairment; Thyroid disease # of Emergency department Answers: 1-2 visits in the last 6 months Score: 15 Date Signed: 07/18/2018 03:15 PM Electronically Signed By:EULALIA Lopez
[2018-07-18 15:42] VITALS: BP 105/61
--- NOTE | 2018-07-18 16:19 | ASMTCMCOM ---
CM Note CM Note Notes: Pt does not qualify for [facility] inpatient rehab. Pt accepted at [facility] choice [facility], orders sent in [employer]. HAO Elizabeth to call report. Bhakti with [facility] scheduled wc transport for 17:30. Date Signed: 07/18/2018 04:18 PM Electronically Signed By:EULALIA Lopez
--- NOTE | 2018-07-19 09:48 | ASDISCHSUM ---
Discharge Information Plan Status:SNF Medically Cleared to Leave: Discharge Date:07/18/2018 05:25 PM D/C Disposition:[facility] Facility ADT D/C Disposition:Home, Routine, Self-Care Projected Discharge Date:07/18/2018 11:00 AM Transportation at D/C:Wheelchair Van Discharge Delay Reason: Follow-Up Date:07/18/2018 11:00 AM Discharge Slot: Final Diagnosis: Placement Information Referral Type:*Fdc/SNF Referral ID:[id number] Provider Name:Karishma abreu [place] Address 1:[address] [facility] Address 2: City:[place] Selection Factors: State:[place] Patient Contact Information Contact Name:MINGOBROCKJEVON Relationship:Daughter Address: Work Phone: City: [facility] Phone: State/Zip Code: Email: Financial Information Financial Class:Medicare Primary Plan Desc:MEDICARE INPATIENT Primary Plan Number:[id number] Secondary Plan Desc:[employer]/MDR SUPPLEMENT Secondary Plan Number:[id number] Assessment Information LACE LACE Length of stay for Answers: 4-6 days current admission Acuity / Level of Answers: Yes Care: Did the patient have an inpatient admission? Comorbidities - select Answers: Diabetes (uncontrolled or all that apply controlled) Opioid dependence / Chronic pain Previous myocardial infarction Other Notes: Cognitive impairment; Thyroid disease # of Emergency department Answers: 1-2 visits in the last 6 months Score: 15 Date Signed: 07/18/2018 03:15 PM Electronically Signed By:EULALIA Lopez [facility] CM Progress Note CM Note CM Note Notes: Pt has hip fx after fall, to OR today. No therapies ordered at this time, anticipate therapies will be ordered and they will work w pt when appropriate. CM to follow for d/c planning. Date Signed: 07/14/2018 09:49 AM Electronically Signed By:EULALIA Lopez [facility] CM Progress Note CM Note CM Note Notes: Inpatient rehab eval in process, will resume Wednesday. Pt adamant she wants to wait until Wednesday to see if she can get into [facility] inpatient rehab. Pt provided SNF list as she may not qualify for inpatient rehab. Pt should d/c Wednesday. Date Signed: 07/16/2018 12:26 PM Electronically Signed By:EULALIA Lopez [facility] CM Progress Note CM Note CM Note Notes: Pt does not qualify for [facility] inpatient rehab. Pt accepted at [facility] choice [facility] [place], orders sent in [employer]. HAO Elizabeth to call reportMiladis Ya with [facility] scheduled wc transport for 17:30. Date Signed: 07/18/2018 04:18 PM Electronically Signed By:EULALIA Lopez Intervention Information
== END 2018-07-18 17:25 | DRG 481 ==
LOC: EDUNIT# → F3N 20:42
PROVIDERS: ADMIT Internal Medicine; ATTEND Internal Medicine
PROC: 0QS606Z Reposition Right Upper Femur with Intramedullary Internal Fixation Device, Open Approach (ICD-10-PCS; principal; 2018-07-14 09:30)
DX: S72.141A Displaced intertrochanteric fracture of right femur, initial encounter for closed fracture (principal); W01.0XXA Fall on same level from slipping, tripping and stumbling without subsequent striking against object, initial encounter; Y93.69 Activity, other involving other sports and athletics played as a team or group; Y92.39 Other specified sports and athletic area as the place of occurrence of the external cause; Y99.8 Other external cause status; I25.10 Atherosclerotic heart disease of native coronary artery without angina pectoris; I25.2 Old myocardial infarction; I50.22 Chronic systolic (congestive) heart failure; Z95.5 Presence of coronary angioplasty implant and graft; Z79.02 Long term (current) use of antithrombotics/antiplatelets; Z79.82 Long term (current) use of aspirin; E11.9 Type 2 diabetes mellitus without complications; Z96.652 Presence of left artificial knee joint; J45.909 Unspecified asthma, uncomplicated; Z85.3 Personal history of malignant neoplasm of breast; Z86.718 Personal history of other venous thrombosis and embolism; K59.00 Constipation, unspecified; K57.30 Diverticulosis of large intestine without perforation or abscess without bleeding; E03.9 Hypothyroidism, unspecified
CPT/HCPCS: 96374; 97116-GP; 97161-GP; 97165-GO; 97535-GO; C1713; G8978-GP-CK; G8979-GP-CJ; G8987-GO-CK; G8988-GO-CJ; J0690; J1100; J1170; J1650; J1885; J2250; J2370; J2405; J2704; J3010

== ENCOUNTER → 2018-12-16 | Outpatient (CLI) | payer OTHER, MEDICARE | LOC: FIMAGING 07:51 | PROVIDERS: ATTEND Internal Medicine | DX: K80.20 Calculus of gallbladder without cholecystitis without obstruction (principal) ==